=== PATIENT | female | born 1975 | race Caucasian/White ===

== ENCOUNTER → 2016-05-05 | Outpatient (CLI) | payer OTHER ==
[2016-05-05 13:09] LABS: CH 33.4; HCT 37.9 % (34.0-46.0); HGB 13.8 gm/dL (11.4-16.0); MCH 33.8 pg (25.0-35.0); MCHC 36.3 g/dL (31.0-37.0); MCV 93.1 fL (80.0-100.0); Mean Platelet Volume 8.2; RBC 4.08 m/uL (3.80-5.40); RDW 11.8 % (11.5-15.5); WBC 4.9 k/uL (3.8-10.6)
[2016-05-05 13:20] LABS: Partial Thromboplastin Time 23.8 sec (22.0-30.0); Prothrombin Time 10.6 sec (9.0-12.0)
[2016-05-05 13:31] LABS: ALT 56 U/L (9-52); AST 34 U/L (14-36); Alkaline Phosphatase 84 U/L (38-126); Anion Gap 10 mmol/L; Blood Urea Nitrogen 15 mg/dL (7-17); Calcium 9.4 mg/dL (8.4-10.2); Carbon Dioxide 23 mmol/L (22-30); Chloride 108 mmol/L (98-107); Cholesterol 131 mg/dL (<200); Glucose 92 mg/dL (74-99); HDL Cholesterol 59 mg/dL (40-60); Iron 109 ug/dL (37-170); Non-African American GFR(MDRD) >60 (>60 ml/min/1.73 sqM); Phosphorous 3.5 mg/dL (2.5-4.5); Potassium 4.1 mmol/L (3.5-5.1); Sodium 141 mmol/L (137-145); Total Bilirubin 0.6 mg/dL (0.2-1.3); Triglycerides 74 mg/dL (<150)
[2016-05-05 13:41] LABS: % Iron Saturation 29.8 % (20-50); Prealbumin 20 mg/dL (18-36); Total Iron Binding Capacity 366 ug/dL (265-497)
[2016-05-05 14:36] LABS: Vitamin B12 431 pg/mL (239-931)
[2016-05-05 16:23] LABS: Hemoglobin A1C 4.7 % (4.2-6.1)
[2016-05-11 20:54] LABS: Selenium 154 mcg/L (63-160)
== END | disposition home or self-care (01) ==
LOC: LABWHC1 12:23
PROVIDERS: ATTEND Surgery Plastic and Reconstructive Surgery
DX: N19 Unspecified kidney failure (principal); K74.1 Hepatic sclerosis; E55.9 Vitamin D deficiency, unspecified; K90.89 Other intestinal malabsorption; D50.8 Other iron deficiency anemias; E89.1 Postprocedural hypoinsulinemia; E21.1 Secondary hyperparathyroidism, not elsewhere classified; E66.01 Morbid (severe) obesity due to excess calories
CPT/HCPCS: 36415; 80053; 80061; 82306; 82525; 82607; 82728; 82746; 83036; 83540; 83550; 83735; 83970; 84100; 84134; 84255; 84425; 84443; 84590; 84630; 85027; 85610; 85730

== ENCOUNTER → 2016-05-12 | Outpatient (CLI) | payer OTHER ==
[2016-05-12 09:06] VITALS: BP 127/83; PULSE 50; RESP 15; TEMP 98.1; BMI 27.0
--- NOTE | 2016-06-15 00:57 | P.PN ---
Progress Note - Text DATE OF SERVICE: 05/12/2016 CHIEF COMPLAINT: Follow-up gastric bypass. HISTORY OF PRESENT ILLNESS: Maile Barboza is a 41-year-old female who is now one year out from Sin-en-Y gastric bypass on 05/18/2015. At her height of 5 feet 9-1/4 inches, her ideal body weight is 168 pounds. Her highest weight was 326 pounds. Today she comes in weighing 184 pounds. She has lost 142 pounds in a year. She has achieved 90% excess weight loss. Body mass index is reduced from 47.9 down to 27. Total BMI point reduction is 20.8. She is only 16 pounds overweight. She is very pleased with the level of success. No reports of obstructive sleep apnea and her hypertension is now completely resolved. Her osteoarthritis is completely resolved. There is moderate skin redundancy of the bilateral arms, thighs, legs and abdomen. She has redundant skin including panniculitis and has been treated for nystatin powder for well over a year. Now she presents for further evaluation and management. PAST MEDICAL HISTORY: 1. Morbid obesity. 2. Dyslipidemia. 3. Gastroesophageal reflux disease. 4. Obstructive sleep apnea. 5. Panniculitis. PAST SURGICAL HISTORY: 1. History of hernia ventral hernia. 2. History of breast surgery. 3. Status post Sin-en-Y gastric bypass. 4. Cholecystetomy. MEDICATIONS: Multivitamins. ALLERGIES: Denies. SOCIAL HISTORY: Daily smoker. FAMILY HISTORY: Pertinent for diabetes including morbid obesity. Denies any inflammatory bowel disease. REVIEW OF SYSTEMS: CONSTITUTIONAL: 6. At her height of 5 feet 9-1/4 inches, her ideal body weight is 168 pounds. Her highest weight was 326 pounds. Today she comes in weighing 184 pounds. She has lost 142 pounds in a year. She has achieved 90% excess weight loss. Body mass index is reduced from 47.9 down to 27. Total BMI point reduction is 20.8. She is only 16 pounds overweight. GASTROINTESTINAL: Also no reports of blood in stools. No dumping syndrome. MUSCULOSKELETAL: Moderate resolution of the bilateral hip and knee pain including lower back pain. RESPIRATORY: Resolved obstructive sleep apnea. 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 ENDOCRINE: Glucose intolerance, resolved. No reports of hypothyroidism. HEENT: Denies any vision or hearing loss. CARDIOVASCULAR: Denies any heart attack or chest pain. Does have dyslipidemia now improved. NEURO: Denies any seizure disorders. Denies any numbness. PSYCH: Denies any depression or suicidal ideation. HEMATOLOGIC: Denies any easy bruising or bleeding. PHYSICAL EXAM: VITAL SIGNS: 98.1, 50, 16, 127/83; 5 feet 9-1/4, 184 pounds. Body mass index 27.0 ABDOMEN: Pannus extends over pubis x 8 cm with hyperemia consistent with panniculitis. Weight of pannus over 10 pounds with skin elastosis. GENERAL: Well-developed, pleasant female in no acute distress. MUSCULOSKELETAL: No clubbing, cyanosis, or edema. HEENT: No sclerae icterus. Extraocular movements intact. Moist buccal mucosa. NECK: Supple without lymphadenopathy. CHEST: Nonlabored respirations were equal bilateral excursions. CARDIOVASCULAR: Regular rate and rhythm. NEURO: No focal or lateralizing signs. Cranial nerves II through XII grossly within normal limits. PSYCH: Appropriate affect. Alert and oriented to person place and time. ASSESSMENT: 1. Morbid obesity due to excess calories, now resolved. 2. Body mass index reduced from 47.9 down to 27. 3. History of diaphragmatic hiatal hernia. 4. Gastroesophageal reflux disease, resolved. 5. 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 6. Overweight. 7. Dyslipidemia, resolved. 8. Benign hypertension disease, resolved. 9. 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 10. Obstructive sleep apnea, resolved. 11. Metabolic syndrome, resolved. 12. Glucose intolerance, prediabetic, resolved. 13. Status post Sin-en-Y gastric bypass. 14. Elevated AST and ALT. 15. Family history of gallbladder disease. 16. Chronic cholecystitis. 17. Vitamin A deficiency. 18. Panniculitis. 19. Symptomatic cholelithiasis. 20. Bradycardia. 21. Seasonal ALLERGIES. 22. Inadequate protein intake. 23. Status post massive weight loss of 142 pounds. 24. Panniculitis. 25. Panniculus adiposis. PLAN: 1. She has done extremely well with her weight loss and despite taking nystatin powder she still continues to have moderate panniculitis. Additional photographic images have been obtained. 2. Recommend panniculectomy. On exam over 15 pounds of skin along the abdomen with hyperemia identified. I discussed with her the risk of panniculectomy including bleeding, infection, abdominal wall seroma, flap failure. 3. Additional complications including chronic pain were reviewed. 4. Inpatient hospitalization overnight advised for pain control. 5. As the procedure may make her anemic, recommend a bariatric metabolic panel. 6. DVT prophylaxis. 7. Antibiotic prophylaxis. ADDENDUM: LABS: Bariatric metabolic panel demonstrates chloride elevated at 108. ALT elevated at 56. Vitamin A low at 37. The rest of the trace elements were within normal limits. Recommend vitamin A rich foods including vitamin A supplement of 8000 daily. In regards to her postoperative care for panniculectomy, she will need at least 4 weeks of recovery of lifting no more than 4 pounds.
== END | disposition home or self-care (01) ==
LOC: BARWHC3 08:42
PROVIDERS: ATTEND Surgery Plastic and Reconstructive Surgery
DX: Z48.815 Encounter for surgical aftercare following surgery on the digestive system (principal); E66.3 Overweight; Z68.27 Body mass index [BMI] 27.0-27.9, adult; Z71.3 Dietary counseling and surveillance; Z98.84 Bariatric surgery status; F17.200 Nicotine dependence, unspecified, uncomplicated; R79.89 Other specified abnormal findings of blood chemistry; Z84.89 Family history of other specified conditions; K81.1 Chronic cholecystitis; E50.9 Vitamin A deficiency, unspecified; K80.80 Other cholelithiasis without obstruction; R00.1 Bradycardia, unspecified; Z91.09 Other allergy status, other than to drugs and biological substances; E63.8 Other specified nutritional deficiencies; M79.3 Panniculitis, unspecified; E65 Localized adiposity
CPT/HCPCS: 97803; G0463; 99211

== ENCOUNTER → 2016-08-17 | Outpatient (CLI) | payer OTHER ==
[2016-08-17 15:04] VITALS: BP 116/73; PULSE 58; RESP 16; TEMP 98.3; BMI 26.3
--- NOTE | 2016-09-06 19:07 | P.PN ---
Progress Note - Text DATE OF SERVICE: 08/17/2016 CHIEF COMPLAINT: Follow-up gastric bypass. HISTORY OF PRESENT ILLNESS: Maile Barboza is a 41-year-old female who is over one year out from Sin-en-Y gastric bypass on 05/18/2015. At her height of 5 feet 9-1/4 inches, her ideal body weight is 168 pounds. Her highest weight was 326 pounds. Today she comes in weighing 179 pounds. She has lost 147 pounds in over a year. She has lost another 5 pounds in 6 months. She has achieved 93% excess weight loss. Body mass index is reduced from 47.9 down to 26.3. Total BMI point reduction is 21.6. She is only 11 pounds overweight. She comes in with complaints of burning along the bilateral upper abdomen. She has undergone a cholecystectomy. She denies any back pain. She states the pain radiates to her left shoulder blade. She denies any trouble with swallowing. She denies any alleviating factors. Now she presents for evaluation regarding her bilateral upper abdominal pain as well as her pannus. She still reports chronic infections and ulcers as result of her pannus. She has been using nystatin powder for over a year as well. PAST MEDICAL HISTORY: 1. Morbid obesity. 2. Dyslipidemia. 3. Gastroesophageal reflux disease. 4. Obstructive sleep apnea. 5. Panniculitis. PAST SURGICAL HISTORY: 1. History of hernia ventral hernia. 2. History of breast surgery. 3. Status post Sin-en-Y gastric bypass. 4. Cholecystetomy. MEDICATIONS: Multivitamins. ALLERGIES: Denies. SOCIAL HISTORY: Denies active tobacco use. FAMILY HISTORY: Pertinent for diabetes including morbid obesity. Denies any inflammatory bowel disease. REVIEW OF SYSTEMS: CONSTITUTIONAL: At her height of 5 feet 9-1/4 inches, her ideal body weight is 168 pounds. Her highest weight was 326 pounds. Today she comes in weighing 179 pounds. She has lost 147 pounds in over a year. She has lost another 5 pounds in 6 months. She has achieved 93% excess weight loss. Body mass index is reduced from 47.9 down to 26.3. GASTROINTESTINAL: Also no reports of blood in stools. No dumping syndrome. MUSCULOSKELETAL: Moderate resolution of the bilateral hip and knee pain including lower back pain. RESPIRATORY: Resolved obstructive sleep apnea. No pneumonia. 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 ENDOCRINE: Glucose intolerance, resolved. No reports of hypothyroidism. HEENT: Denies any vision or hearing loss. CARDIOVASCULAR: Denies any heart attack or chest pain. Does have dyslipidemia now improved. NEURO: Denies any seizure disorders. Denies any numbness. PSYCH: Denies any depression or suicidal ideation. HEMATOLOGIC: Denies any easy bruising or bleeding. PHYSICAL EXAM: VITAL SIGNS: 5 feet 9-/4, 179 pounds. Body mass index 26.3 Vital Signs Temp 98.3 F 08/17/16 14:52 Pulse 58 L 08/17/16 14:52 Resp 16 08/17/16 14:52 BP 116/73 08/17/16 14:52 Pulse Ox ABDOMEN: Pannus extends over pubis x 9 cm with hyperemia consistent with panniculitis. Weight of pannus between 10 to 15 pounds with skin elastosis. Soft, nondistended. Minimal tenderness along bilateral upper abdomen. No peritoneal signs. GENERAL: Well-developed, pleasant female in no acute distress. MUSCULOSKELETAL: No clubbing, cyanosis, or edema. HEENT: No sclerae icterus. Extraocular movements intact. Moist buccal mucosa. NECK: Supple without lymphadenopathy. CHEST: Nonlabored respirations were equal bilateral excursions. CARDIOVASCULAR: Regular rate and rhythm. NEURO: No focal or lateralizing signs. Cranial nerves II through XII grossly within normal limits. PSYCH: Appropriate affect. Alert and oriented to person place and time. LABS: Vitamin A low at 37. ASSESSMENT: 1. Morbid obesity due to excess calories, now resolved. 2. Body mass index reduced from 47.9 down to 26.3 3. Status post Sin-en-Y gastric bypass. 4. Gastroesophageal reflux disease, resolved. 5. 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 6. Panniculitis. 7. Status post massive weight loss of 147 pounds. 8. Vitamin A deficiency. 9. Panniculus adiposis. 10. Bilateral upper abdominal pain. PLAN: 1. She reports increased pain of the bilateral upper abdomen whereby she is at risk for peritoneal adhesions. Recommend laparoscopic lysis of adhesions. 2. DVT prophylaxis. 3. Antibiotic prophylaxis. 4. Despite over one year treatment with statin powders, she continues to have persistent panniculitis. Recommend panniculectomy. 5. Risks of panniculectomy including bleeding, infection, flap failure, need for further surgery, postoperative seroma, chronic pain were described in detail. 6. Recommend correction of vitamin A deficiency such as vitamin A supplement 8000 units daily including vitamin A rich diet.
== END | disposition home or self-care (01) ==
LOC: BARWHC3 13:45
PROVIDERS: ATTEND Surgery Plastic and Reconstructive Surgery
DX: Z09 Encounter for follow-up examination after completed treatment for conditions other than malignant neoplasm (principal); M79.3 Panniculitis, unspecified; E50.9 Vitamin A deficiency, unspecified; Z98.84 Bariatric surgery status
CPT/HCPCS: 99211

== ENCOUNTER 2016-09-19 06:25 | Day surgery (SDC) | payer OTHER ==
[2016-09-13 12:58] VITALS: BMI 24.6
--- NOTE | 2016-09-19 05:16 | P.GSHP ---
History of Present Illness H&P Date: 09/19/16 DATE OF SERVICE: 09/19/2016 CHIEF COMPLAINT: Abdominal pain. HISTORY OF PRESENT ILLNESS: Maile Barboza is a 41-year-old female who is over one year out from Isn-en-Y gastric bypass on 05/18/2015. At her height of 5 feet 9- 1/4 inches, her ideal body weight is 168 pounds. Her highest weight was 326 pounds. Today she comes in weighing 168 pounds. She has lost 158 pounds in over a year. She has achieved 100% excess weight loss. Body mass index is reduced from 47.9 down to 24.6. She comes in with complaints of burning along the bilateral upper abdomen. She has undergone a cholecystectomy. She denies any back pain. She states the pain radiates to her left shoulder blade. She denies any trouble with swallowing. She denies any alleviating factors. Now she presents for evaluation regarding her bilateral upper abdominal pain. PAST MEDICAL HISTORY: 1. Morbid obesity. 2. Dyslipidemia. 3. Gastroesophageal reflux disease. 4. Obstructive sleep apnea. 5. Panniculitis. PAST SURGICAL HISTORY: 1. History of hernia ventral hernia. 2. History of breast surgery. 3. Status post Sin-en-Y gastric bypass. 4. Cholecystetomy. MEDICATIONS: Multivitamins. ALLERGIES: Denies. SOCIAL HISTORY: Denies active tobacco use. FAMILY HISTORY: Pertinent for diabetes including morbid obesity. Denies any inflammatory bowel disease. REVIEW OF SYSTEMS: CONSTITUTIONAL: At her height of 5 feet 9-1/4 inches, her ideal body weight is 168 pounds. Her highest weight was 326 pounds. Today she comes in weighing 168 pounds. She has lost 158 pounds in over a year. She has achieved 100% excess weight loss. Body mass index is reduced from 47.9 down to 24.6. GASTROINTESTINAL: Also no reports of blood in stools. No dumping syndrome. MUSCULOSKELETAL: Moderate resolution of the bilateral hip and knee pain including lower back pain. RESPIRATORY: Resolved obstructive sleep apnea. No pneumonia. 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 ENDOCRINE: Glucose intolerance, resolved. No reports of hypothyroidism. HEENT: Denies any vision or hearing loss. CARDIOVASCULAR: Denies any heart attack or chest pain. Does have dyslipidemia now improved. NEURO: Denies any seizure disorders. Denies any numbness. PSYCH: Denies any depression or suicidal ideation. HEMATOLOGIC: Denies any easy bruising or bleeding. PHYSICAL EXAM: VITAL SIGNS: 5 feet 9-1/4, 168 pounds. Body mass index 24.6 ABDOMEN: Pannus extends over pubis x 9 cm with hyperemia consistent with panniculitis. Weight of pannus between 10 to 15 pounds with skin elastosis. Soft, nondistended. Minimal tenderness along bilateral upper abdomen. No peritoneal signs. GENERAL: Well-developed, pleasant female in no acute distress. MUSCULOSKELETAL: No clubbing, cyanosis, or edema. HEENT: No sclerae icterus. Extraocular movements intact. Moist buccal mucosa. NECK: Supple without lymphadenopathy. CHEST: Nonlabored respirations were equal bilateral excursions. CARDIOVASCULAR: Regular rate and rhythm. NEURO: No focal or lateralizing signs. Cranial nerves II through XII grossly within normal limits. PSYCH: Appropriate affect. Alert and oriented to person place and time. ASSESSMENT: 1. Morbid obesity due to excess calories, now resolved. 2. Body mass index reduced from 47.9 down to 24.6 3. Status post Sin-en-Y gastric bypass. 4. Gastroesophageal reflux disease, resolved. 5. 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 6. Panniculitis. 7. Status post massive weight loss of 158 pounds. 8. Vitamin A deficiency. 9. Panniculus adiposis. 10. Bilateral upper abdominal pain. PLAN: 1. She reports increased pain of the bilateral upper abdomen whereby she is at risk for peritoneal adhesions. Recommend laparoscopic lysis of adhesions. 2. DVT prophylaxis. 3. Antibiotic prophylaxis. 4. Despite over one year treatment with statin powders, she continues to have persistent panniculitis. Recommend panniculectomy. 5. Risks of panniculectomy including bleeding, infection, flap failure, need for further surgery, postoperative seroma, chronic pain were described in detail. 6. Recommend correction of vitamin A deficiency such as vitamin A supplement 8000 units daily including vitamin A rich diet. Past Medical History Past Medical History: GERD/Reflux, Hyperlipidemia, Sleep Apnea/CPAP/BIPAP Additional Past Medical History / Comment(s): NO TX FOR SLEEP Apnea, GERD, HYPERLIPIDEMIA RESOLVED SINCE BARIATRIC SURGERY. HAS HAD EPISODES OF UPPER ABD PAIN, NONE RECENT. History of Any Multi-Drug Resistant Organisms: None Reported Past Surgical History: Bariatric Surgery, Breast Surgery, Cholecystectomy, Hernia Repair Additional Past Surgical History / Comment(s): Hiatal Hernia Repair. SIN-N-Y Gastric Bypass 05/2015. FELICITY Breast Lumpectomy. Past Anesthesia/Blood Transfusion Reactions: No Reported Reaction, Motion Sickness Smoking Status: Never smoker - Past Family History Mother Family Medical History: No Reported History Additional Family Medical History / Comment(s): Mother is healthy Father Family Medical History: No Reported History Additional Family Medical History / Comment(s): Father is healthy. Medications and Allergies Home Medications Medication Instructions Recorded Confirmed Type Multivitamins, Thera [Multivitamin] 2 tab PO DAILY 06/25/15 09/13/16 History Calcium Citrate 1 tab PO DAILY 02/22/16 09/13/16 History Nystatin 100,000 Unit/gm Powd 1 applic TOPICAL TID PRN 05/12/16 09/13/16 History [Mycostatin Powder] Vitamin A 5,000 unit PO DAILY 08/17/16 09/13/16 History Allergies Allergy/AdvReac Type Severity Reaction Status Date / Time No Known Allergies Allergy Verified 09/13/16 11:56
[~2016-09-19 06:25] MED LIST: ACETAMINOPHEN TAB 500 MG TAB PO ONE; DEXAMETHASONE SOD PHOSPHATE 10 MG/ML 1 ML VIAL IV ONE; HEPARIN SODIUM,PORCINE 5,000 UNIT/ML 1 ML VIAL SQ ONE; HYDROmorphone 1 MG/ML 1 ML SYRINGE IVP PRN; LACTATED RINGERS 1,000 ML IV SCH; LIDOCAINE 1% 20 ML VIAL (10MG/ML) FOR IV START INTRADERMA PRN; ONDANSETRON 4 MG/2 ML VIAL IVP ONE; Pre Op ABX Message 1 EACH MISC MISCELLANE ONE; SCOPOLAMINE 1.5MG/72HR PATCH TRANSDERM ONE; ceFAZolin 2 GM in SODIUM CHLORIDE 0.9% 100 ML IVPB ONE
[2016-09-19] MEDS ORDERED: BUPIVACAIN-EPI 0.5%-1:200,000 30 ML VIAL SQ ONE (07:27)
[2016-09-19] MEDS ORDERED: fentaNYL (PF) 50 MCG/ML 2 ML AMP ONE (07:30)
[2016-09-19] MEDS ORDERED: ROCURONIUM BROMIDE 10 MG/ML 10 ML VIAL IV ONE (07:30)
[2016-09-19] MEDS ORDERED: MIDAZOLAM 2 MG/2 ML VIAL ONE (07:30)
[2016-09-19] MEDS ORDERED: PROPOFOL 10 MG/ML 20 ML VIAL IV ONE (07:30)
[2016-09-19] MEDS ORDERED: ATROPINE SULFATE 0.4 MG/ML 1 ML VIAL ONE (07:30)
[2016-09-19] MEDS ORDERED: GLYCOPYRROLATE 0.2 MG/ML 2 ML VIAL ONE (07:30)
[2016-09-19] MEDS ORDERED: NEOSTIGMINE 1 MG/ML 10 ML VIAL ONE (07:30)
[2016-09-19] MEDS ORDERED: LACTATED RINGERS 1,000 ML IV ONE (08:13)
--- NOTE | 2016-09-19 08:41 | P.OP ---
Date of Procedure: 09/19/16 Preoperative Diagnosis: Postoperative Diagnosis: Procedure(s) Performed: Implants: Indications for Procedure: Operative Findings: Description of Procedure: SURGEON: THIAGO MEYERS MD [employer]IV[employer] CHECKER: ALEX SPICER PREOPERATIVE DIAGNOSES: 1. Prior history of Sin-En-Y gastric bypass. 2. Chronic abdominal pain. 3. Status post massive weight loss, 160 lbs. POSTOPERATIVE DIAGNOSES: 1. Prior history of Sin-En-Y gastric bypass. 2. Chronic abdominal pain. 3. Status post massive weight loss, 160 lbs. 4. Mesenteric adhesion at jejunojejunostomy. 5. Internal hernia mesenteric at jejunojejunostomy. 6. Hemoperitoneum from menses. OPERATION: 1. Diagnostic laparoscopy. 2. Laparoscopic lysis of adhesion. 3. Closure of mesenteric internal hernia, jejunojejunostomy. ANESTHESIA: General with 30 mL 0.50% Marcaine with epinephrine. ESTIMATED BLOOD LOSS: 2 mL. SPECIMENS REMOVED: None. COMPLICATIONS: None. INDICATIONS: The patient is a 41-year-old female with past history of Sin-en-Y gastric bypass. She reports recurrent abdominal pain including of the bilateral upper quadrant and epigastrium. With her history of gastric bypass, she is at risk for internal hernia including intussusception and peritoneal adhesions. Surgical intervention with diagnostic laparoscopy and possible lysis adhesions were described at length. Benefits and risks were reviewed. Informed consent was obtained. DESCRIPTION OF PROCEDURE: Patient was brought to the operating room and laid on split leg table. After general induction, the abdomen had been prepped and draped in standard sterile fashion. Prior to incision, a timeout protocol was confirmed with surgical team regarding the patient's name including procedures to be performed. A left upper quadrant transverse incision was made after anesthetizing the skin with 0.5% Marcaine with epinephrine. Laparoscopic trocar entry with 5- mm trocar into the abdomen was performed without any injury to bowel, viscera or mesentery. Diagnostic laparoscopy demonstrated no small bowel dilatation. Hemoperitoneum was found along the pelvis consistent patient's menstrual cycle. No abdominal wall adhesions were found. Laparoscopic imaging were obtained. Next, two 5 mm trocars were placed one along the left lateral abdominal wall and the other just below the umbilicus under direct visualization. Small bowel was then inspected from the terminal ileum to the jejunojejunostomy and proximally from the Sin limb to the jejunojejunostomy. A defect along the mesentery and inter-mesenteric adhesion was encountered with findings of internal hernia was sharply excised using a Harmonic scalpel at the jejunojejunostomy. The Cagle defect was scarred. Secondary to the patient moderate weight loss, her jejunojejunostomy mesenteric defect had reopened. Next, attention was brought to the small bowel, particularly of the base of the cecum to perform a retrograde analysis of the small bowel. Excellent peristalsis was identified without any evidence of bowel obstruction or bowel dilatation. The rest of the transverse colon was found to be also unremarkable. Attention was brought to the liver for which no evidence of fatty liver disease was encountered. Hemostasis was checked. At the jejunojejunostomy mesenteric defect, the defect was closed using an Endo Stitch and 2-0 silk. All instruments were removed. All fascial defects were found to be less than 8 mm in size. For postop analgesia 0.25% Marcaine and epinephrine was infiltrated to all wounds. The incisions were reapproximated using interrupted subcuticular 4-0 Monocryl. Dermabond was applied to the skin. At the end of the procedure, needle, sponge, and instrument counts had been verified correct by rn surgical. Laparoscopic imaging with final capture had been reviewed and also discussed with the patient's family. FINDINGS: 1. Reopening of the jejunojejunostomy mesenteric defect after moderate weight loss. 2. Hemoperitoneum along the pelvis from recent menstrual cycle. 3. Internal hernia and these enteric defect closed using Endo Stitch and 2-0 silk. Plan - Discharge Summary New Discharge Prescriptions: No Action Multivitamins, Thera [Multivitamin] 2 tab PO DAILY Calcium Citrate 1 tab PO DAILY Nystatin 100,000 Unit/gm Powd [Mycostatin Powder] 1 applic TOPICAL TID PRN PRN Reason: Skin Irritation Vitamin A 5,000 unit PO DAILY Discharge Medication List Multivitamins, Thera [Multivitamin] 2 tab PO DAILY 06/25/15 [History] Calcium Citrate 1 tab PO DAILY 02/22/16 [History] Nystatin 100,000 Unit/gm Powd [Mycostatin Powder] 1 applic TOPICAL TID PRN 05/12 [History] Vitamin A 5,000 unit PO DAILY 08/17/16 [History]
[2016-09-19] MEDS ORDERED: HYDROcodone/APAP 5-325MG 1 EACH TAB PO PRN (08:43)
[2016-09-19] MEDS ORDERED: ONDANSETRON 4 MG/2 ML VIAL IVP PRN (08:43)
[2016-09-19] MEDS ORDERED: NALOXONE 0.4 MG/ML 1 ML VIAL IV PRN (08:43)
[2016-09-19 08:48] VITALS: TEMP 98
[2016-09-19 08:52] VITALS: RESP 16
[2016-09-19] MEDS ORDERED: KETOROLAC 30 MG/ML 1 ML VIAL IVP ONE (09:11)
[2016-09-19] MEDS ORDERED: HYDROcodone/APAP 5-325MG 1 EACH TAB PO ONE (09:45)
[2016-09-19 10:20] VITALS: BP 132/82; PULSE 65
[2016-09-19] MEDS ORDERED: KETOROLAC 30 MG/ML 1 ML VIAL IVP SCH (12:00)
== END 2016-09-19 10:27 | disposition home or self-care (01) ==
LOC: OR 06:25
PROVIDERS: ATTEND Surgery Plastic and Reconstructive Surgery
DX: K94.19 Other complications of enterostomy (principal); K46.9 Unspecified abdominal hernia without obstruction or gangrene; K66.0 Peritoneal adhesions (postprocedural) (postinfection); K66.1 Hemoperitoneum; G89.29 Other chronic pain; Z98.84 Bariatric surgery status; Z68.24 Body mass index [BMI] 24.0-24.9, adult; M79.3 Panniculitis, unspecified; E50.9 Vitamin A deficiency, unspecified; G47.33 Obstructive sleep apnea (adult) (pediatric); Z99.89 Dependence on other enabling machines and devices; Z79.899 Other long term (current) drug therapy
CPT/HCPCS: 81025; 49329; J2250; J0461; J1644; J1100; J2710; J0690; J2405; J3010; J1885; J2704

== ENCOUNTER → 2016-09-22 | Outpatient (CLI) | payer OTHER ==
[2016-09-22 10:40] VITALS: BP 123/83; PULSE 42; RESP 42; TEMP 98.1; BMI 26.1
--- NOTE | 2016-10-16 11:50 | P.PN ---
Progress Note - Text DATE OF SERVICE: 09/22/2016 CHIEF COMPLAINT: Follow-up gastric bypass. HISTORY OF PRESENT ILLNESS: Maile Barobza is a 41-year-old female who is status post Sin-en-Y gastric bypass on 05/18/2015. She had chronic left upper quadrant abdominal pain. She is status post diagnostic laparoscopy with lysis of adhesions including closure of internal hernia on 09/19/2016. She feels much better. Separately she has done extremely well with weight loss. No reports of fevers or chills. At her height of 5 feet 9-1/4 inches, her ideal body weight is 168 pounds. Her highest weight was 326 pounds. Today she comes in weighing 178 pounds. She has lost 148 pounds in over a year. She has achieved 94% excess weight loss. Body mass index is reduced from 47.9 down to 26.1. Total BMI point reduction is 21.8. She is only 10 pounds overweight. PHYSICAL EXAM: VITAL SIGNS: 5 feet 9-1/4, 178 pounds. Body mass index 26.1 Vital Signs 09/22/16 10:36 Temperature 98.1 F Pulse Rate 42 L Respiratory 42 H Rate Blood Pressure 123/83 ABDOMEN: Pannus extends over pubis x 9 cm with hyperemia consistent with panniculitis. All incisions clean dry and intact. No peritonitis. GENERAL: Well-developed, pleasant female in no acute distress. MUSCULOSKELETAL: No clubbing, cyanosis, or edema. HEENT: No sclerae icterus. Extraocular movements intact. Moist buccal mucosa. NECK: Supple without lymphadenopathy. CHEST: Nonlabored respirations were equal bilateral excursions. CARDIOVASCULAR: Regular rate and rhythm. NEURO: No focal or lateralizing signs. Cranial nerves II through XII grossly within normal limits. PSYCH: Appropriate affect. Alert and oriented to person place and time. ASSESSMENT: 1. Morbid obesity due to excess calories, now resolved. 2. Body mass index reduced from 47.9 down to 26.1 3. Status post Sin-en-Y gastric bypass. 4. Panniculitis. 5. Status post massive weight loss of 148 pounds. 6. Panniculus adiposis. 7. History of left upper quadrant abdominal pain resolved. PLAN: 1. Her pain has resolved however she does have history of panniculitis. 2. Recommend panniculectomy once her weight has stabilized.
== END ==
LOC: BARWHC3 10:29
PROVIDERS: ATTEND Surgery Plastic and Reconstructive Surgery
DX: Z48.815 Encounter for surgical aftercare following surgery on the digestive system (principal); M79.3 Panniculitis, unspecified; Z68.26 Body mass index [BMI] 26.0-26.9, adult; Z98.890 Other specified postprocedural states; Z98.84 Bariatric surgery status
CPT/HCPCS: 99211

== ENCOUNTER → 2017-01-11 | Outpatient (CLI) | payer OTHER ==
[2017-01-11 16:12] VITALS: BP 116/75; PULSE 57; RESP 16; TEMP 97.6; BMI 26.4
--- NOTE | 2017-03-06 20:20 | P.PN ---
Subjective Progress Note Date: 01/11/17 DATE OF SERVICE: 01/11/2017 CHIEF COMPLAINT: Follow-up gastric bypass. HISTORY OF PRESENT ILLNESS: Maile Barboza is a 41-year-old female who is over one year out from Sin-en-Y gastric bypass on 05/18/2015. At her height of 5 feet 9-1/4 inches, her ideal body weight is 168 pounds. Her highest weight was 326 pounds. Today she comes in weighing 180 pounds. She has lost 146 pounds in over a year. She has achieved 92% excess weight loss. Body mass index is reduced from 47.9 down to 26.5. Total BMI point reduction is 21.4. She is 12 pounds overweight. She has epigastric abdominal pain. This has improved with omeprazole. Her main concern includes troubles with her abdominal skin. She has been using Nystatin powder for over one year. PAST MEDICAL HISTORY: 1. Morbid obesity. 2. Dyslipidemia. 3. Gastroesophageal reflux disease. 4. Obstructive sleep apnea. 5. Panniculitis. PAST SURGICAL HISTORY: 1. History of hernia ventral hernia. 2. History of breast surgery. 3. Status post Sin-en-Y gastric bypass. 4. Cholecystetomy. 5. Lysis of adhesions. MEDICATIONS: 1. Multivitamins. 2. Omeprazole. ALLERGIES: Denies. SOCIAL HISTORY: Denies active tobacco use. FAMILY HISTORY: Pertinent for diabetes including morbid obesity. Denies any inflammatory bowel disease. REVIEW OF SYSTEMS: CONSTITUTIONAL: At her height of 5 feet 9-1/4 inches, her ideal body weight is 168 pounds. Her highest weight was 326 pounds. Today she comes in weighing 180 pounds. She has lost 146 pounds in over a year. She has achieved 92% excess weight loss. Body mass index is reduced from 47.9 down to 26.5. GASTROINTESTINAL: Also no reports of blood in stools. No dumping syndrome. Takes omeprazole for epigastric abdominal pain. MUSCULOSKELETAL: Moderate resolution of the bilateral hip and knee pain including lower back pain. RESPIRATORY: Resolved obstructive sleep apnea. No pneumonia. 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 ENDOCRINE: Glucose intolerance, resolved. No reports of hypothyroidism. HEENT: Denies any vision or hearing loss. CARDIOVASCULAR: Denies any heart attack or chest pain. Does have dyslipidemia now improved. NEURO: Denies any seizure disorders. Denies any numbness. PSYCH: Denies any depression or suicidal ideation. HEMATOLOGIC: Denies any easy bruising or bleeding. PHYSICAL EXAM: VITAL SIGNS: 5 feet 9-1/4, 180 pounds. Body mass index 26.5 Vital Signs Temp 97.6 F 01/11/17 16:10 Pulse 57 L 01/11/17 16:10 Resp 16 01/11/17 16:10 BP 116/75 01/11/17 16:10 Pulse Ox ABDOMEN: Pannus extends over pubis x 10 cm with hyperemia consistent with panniculitis. Weight of pannus between 10 to 15 pounds with skin elastosis. Soft, nondistended. Minimal tenderness along bilateral upper abdomen. No peritoneal signs. GENERAL: Well-developed, pleasant female in no acute distress. MUSCULOSKELETAL: No clubbing, cyanosis, or edema. HEENT: No sclerae icterus. Extraocular movements intact. Moist buccal mucosa. NECK: Supple without lymphadenopathy. CHEST: Nonlabored respirations were equal bilateral excursions. CARDIOVASCULAR: Regular rate and rhythm. NEURO: No focal or lateralizing signs. Cranial nerves II through XII grossly within normal limits. PSYCH: Appropriate affect. Alert and oriented to person place and time. ASSESSMENT: 1. Morbid obesity due to excess calories, now resolved. 2. Body mass index reduced from 47.9 down to 26.5 3. Status post Sin-en-Y gastric bypass. 4. Gastroesophageal reflux disease. 5. 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 6. Panniculitis. 7. Status post massive weight loss of 146 pounds. 8. Panniculus adiposis. PLAN: 1. She has epigastric abdominal pain likely secondary to residual gastric acid. Recommend omeprazole. Alternatives include apple cidar vinegar and lemon juice. 2. She has panniculitis. Recommend panniculectomy as she has treatment over 1- 2 years with minimal improvement. 3. Inpatient hospitalization overnight for pain control. 4. Risks of flap failure, pain, seromas, need for revision were reviewed. Objective - Vital Signs Vital signs: Vital Signs Temp 97.6 F 01/11/17 16:10 Pulse 57 L 01/11/17 16:10 Resp 16 01/11/17 16:10 BP 116/75 01/11/17 16:10 Pulse Ox Intake & Output 01/10/17 01/11/17 01/11/17 18:59 06:59 18:59 Weight 81.845 kg
== END | disposition home or self-care (01) ==
LOC: BARWHC3 14:37
PROVIDERS: ATTEND Surgery Plastic and Reconstructive Surgery
DX: Z09 Encounter for follow-up examination after completed treatment for conditions other than malignant neoplasm (principal); K21.9 Gastro-esophageal reflux disease without esophagitis; M17.0 Bilateral primary osteoarthritis of knee; M79.3 Panniculitis, unspecified; E65 Localized adiposity; Z79.899 Other long term (current) drug therapy; Z90.49 Acquired absence of other specified parts of digestive tract; Z98.890 Other specified postprocedural states; Z98.86 Personal history of breast implant removal; Z98.84 Bariatric surgery status
CPT/HCPCS: 99211

== ENCOUNTER → 2017-02-24 | Outpatient (CLI) | payer OTHER ==
--- NOTE | 2017-03-02 14:25 | MM ---
Reason for exam: screening (asymptomatic). Last mammogram was performed 2 years and 5 months ago. History: Benign excisional biopsy of both breasts, 1988. Took hormonal contraceptives for 8 years. Physical Findings: A clinical breast exam by your physician is recommended on an annual basis and results should be correlated with mammographic findings. MG Screening Mammo w CAD Bilateral CC and MLO view(s) were taken. Prior study comparison: September 17, 2014, bilateral MG screening mammo w CAD. May 06, 2011, bilateral digital screening mammo w/CAD. The breast tissue is heterogeneously dense. This may lower the sensitivity of mammography. No significant changes when compared with prior studies. ASSESSMENT: Benign, BI-RAD 2 RECOMMENDATION: Routine screening mammogram of both breasts in 1 year.
== END | disposition home or self-care (01) ==
LOC: RADMAMWWP 11:40
PROVIDERS: ATTEND Family Medicine
DX: Z12.31 Encounter for screening mammogram for malignant neoplasm of breast (principal)

== ENCOUNTER → 2017-05-17 | Outpatient (CLI) | payer OTHER ==
[2017-05-17 15:16] VITALS: BP 131/86; PULSE 54; RESP 16; TEMP 99; BMI 26.1
[2017-05-17 16:58] LABS: HCT 37.5 % (34.0-46.0); HGB 12.2 gm/dL (11.4-16.0); MCHC 32.6 g/dL (31.0-37.0); MCV 85.9 fL (80.0-100.0); Mean Platelet Volume 7.2; Platelet Count 306 k/uL (150-450); RBC 4.36 m/uL (3.80-5.40); RDW 12.2 % (11.5-15.5); WBC 4.8 k/uL (3.8-10.6)
[2017-05-17 17:02] LABS: Prothrombin Time 9.8 sec (9.0-12.0)
[2017-05-17 17:12] LABS: ALT 64 U/L (9-52); AST 45 U/L (14-36); Albumin 4.6 g/dL (3.5-5.0); Alkaline Phosphatase 107 U/L (38-126); Anion Gap 8 mmol/L; Blood Urea Nitrogen 15 mg/dL (7-17); Carbon Dioxide 28 mmol/L (22-30); Chloride 104 mmol/L (98-107); Cholesterol 191 mg/dL (<200); Glucose 91 mg/dL (74-99); HDL Cholesterol 74 mg/dL (40-60); LDL Cholesterol,Calculated 96 mg/dL (0-99); Magnesium 1.9 mg/dL (1.6-2.3); Phosphorus 3.9 mg/dL (2.5-4.5); Potassium 4.1 mmol/L (3.5-5.1); Sodium 140 mmol/L (137-145); Total Bilirubin 0.4 mg/dL (0.2-1.3); Total Protein 7.5 g/dL (6.3-8.2); Triglycerides 106 mg/dL (<150)
[2017-05-18 01:22] LABS: Vitamin D 25 Hydroxy 37.7 ng/mL (30.0-100.0)
[2017-05-18 02:14] LABS: Hemoglobin A1C 5.3 % (4.0-6.0)
[2017-05-18 02:15] LABS: Folate, Serum >24.0 ng/mL; Iron Saturation 4.16 (12.00-45.00)
[2017-05-18 02:28] LABS: Parathyroid Hormone Intact 63.9 pg/mL (14.0-72.0)
[2017-05-18 16:21] LABS: Zinc, Serum 69 ug/dL (60-130)
[2017-05-19 00:55] LABS: Vitamin B1 77 ug/L (38-122)
[2017-05-19 08:41] LABS: Vitamin A 42 ug/dL (38-106)
[2017-05-20 23:20] LABS: Selenium 136 mcg/L (63-160)
--- NOTE | 2017-06-30 09:56 | P.PN ---
Subjective Progress Note Date: 05/17/17 DATE OF SERVICE: 05/17/2017 CHIEF COMPLAINT: Follow-up gastric bypass HISTORY OF PRESENT ILLNESS: Maile Barboza is a 42-year-old female status post Sin -en-Y gastric bypass on 05/18/2015. She is 2 years out. At her height of 5 feet 9-1/4 inches, her ideal body weight is 168 pounds. Her highest weight was 326 pounds. Today she comes in weighing 178 pounds. She has lost 148 pounds, lifetime. She has lost another 2 pounds in 4 months. She has achieved 94% excess weight loss. Body mass index is reduced from 47.9 down to 26.1. She is 10 pounds overweight. She comes in with complaints of severe and chronic panniculitis. Also she reports epigastric abdominal pain also at the right lower quadrant. She has been using nystatin powder including topical treatment for over 2 years. She reports that her pannus interferes with her daily activities clues with exercising, pacing, closing, lower back pain and causing increased chafing to her legs. Now she presents for panniculectomy. PAST MEDICAL HISTORY: 1. Morbid obesity. 2. Dyslipidemia. 3. Gastroesophageal reflux disease. 4. Obstructive sleep apnea. 5. Panniculitis. PAST SURGICAL HISTORY: 1. History of hernia ventral hernia. 2. History of breast surgery. 3. Status post Sin-en-Y gastric bypass. 4. Cholecystetomy. 5. Lysis of adhesions. MEDICATIONS: 1. Multivitamins. 2. Omeprazole. 3. Nystatin powder 4. Vitamin A 5. Calcium ALLERGIES: Denies. SOCIAL HISTORY: Denies active tobacco use. FAMILY HISTORY: Pertinent for diabetes including morbid obesity. Denies any inflammatory bowel disease. REVIEW OF SYSTEMS: CONSTITUTIONAL: At her height of 5 feet 9-1/4 inches, her ideal body weight is 168 pounds. Her highest weight was 326 pounds. Today she comes in weighing 178 pounds. She has lost 148 pounds, lifetime. She has lost another 2 pounds in 4 months. She has achieved 94% excess weight loss. Body mass index is reduced from 47.9 down to 26.1. She is 10 pounds overweight. GASTROINTESTINAL: No dumping syndrome. No change in bowel habits. MUSCULOSKELETAL: Moderate resolution of the bilateral hip and knee pain including lower back pain. RESPIRATORY: Resolved obstructive sleep apnea. No pneumonia. 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 ENDOCRINE: Glucose intolerance, resolved. No reports of hypothyroidism. HEENT: Denies any vision or hearing loss. CARDIOVASCULAR: Denies any heart attack or chest pain. NEURO: Denies any seizure disorders. Denies any numbness. PSYCH: Denies any depression or suicidal ideation. HEMATOLOGIC: Denies any easy bruising or bleeding. PHYSICAL EXAM: VITAL SIGNS: 5 feet 9-/4, 178 pounds. Body mass index 26.1 Vital Signs Temp 99.0 F 05/17/17 15:11 Pulse 54 L 05/17/17 15:11 Resp 16 05/17/17 15:11 BP 131/86 05/17/17 15:11 Pulse Ox ABDOMEN: Pannus extends over pubis more than 5 inches. Weight of pannus over 10 pounds with severe elastosis. Soft, nondistended. GENERAL: Well-developed, pleasant female in no acute distress. MUSCULOSKELETAL: No clubbing, cyanosis, or edema. HEENT: No sclerae icterus. Extraocular movements intact. Moist buccal mucosa. NECK: Supple without lymphadenopathy. CHEST: Nonlabored respirations were equal bilateral excursions. CARDIOVASCULAR: Regular rate and rhythm. NEURO: No focal or lateralizing signs. Cranial nerves II through XII grossly within normal limits. PSYCH: Appropriate affect. Alert and oriented to person place and time. SKIN: Well perfused. Good skin turgor. ASSESSMENT: 1. Morbid obesity due to excess calories, now resolved. 2. Body mass index reduced from 47.9 down to 26.1 3. Status post Sin-en-Y gastric bypass. 4. Panniculitis 5. Status post massive weight loss of 148 pounds. 6. Panniculus adiposis. PLAN: 1. Recommend bariatric metabolic panel she is now 2 years out. 2. She has persistent debilitating panniculitis. To restore function, recommend panniculectomy. Benefits and risks of bleeding, infection, flap failure, need for further surgery, placement of drains were described. 3. Recommend correction of the tractional deficiencies prior to procedure. 4. Recommend two-week protein diet prior to procedure for optimal wound recovery. 5. DVT prophylaxis 6. Antibiotic prophylaxis Laboratory Last Values WBC 4.8 k/uL (3.8-10.6) 05/17/17 16:24 RBC 4.36 m/uL (3.80-5.40) 05/17/17 16:24 Hgb 12.2 gm/dL (11.4-16.0) 05/17/17 16:24 Hct 37.5 % (34.0-46.0) 05/17/17 16:24 MCV 85.9 fL (80.0-100.0) 05/17/17 16:24 MCH 28.0 pg (25.0-35.0) 05/17/17 16:24 MCHC 32.6 g/dL (31.0-37.0) 05/17/17 16:24 RDW 12.2 % (11.5-15.5) 05/17/17 16:24 Plt Count 306 k/uL (150-450) 05/17/17 16:24 PT 9.8 sec (9.0-12.0) 05/17/17 16:24 INR 1.0 (<1.2) 05/17/17 16:24 APTT 22.0 sec (22.0-30.0) 05/17/17 16:24 Sodium 140 mmol/L (137-145) 05/17/17 16:24 Potassium 4.1 mmol/L (3.5-5.1) 05/17/17 16:24 Chloride 104 mmol/L (98-107) 05/17/17 16:24 Carbon Dioxide 28 mmol/L (22-30) 05/17/17 16:24 Anion Gap 8 mmol/L 05/17/17 16:24 BUN 15 mg/dL (7-17) 05/17/17 16:24 Creatinine 0.80 mg/dL (0.52-1.04) 05/17/17 16:24 Est GFR (CKD-EPI)AfAm >90 (>60 ml/min/1.73 sqM) 05/17/17 16:24 Est GFR (CKD-EPI)NonAf >90 (>60 ml/min/1.73 sqM) 05/17/17 16:24 Glucose 91 mg/dL (74-99) 05/17/17 16:[address] Glu mg/dL 105 05/17/17 16:24 Hemoglobin A1c 5.3 % (4.0-6.0) 05/17/17 16:24 Calcium 10.0 mg/dL (8.4-10.2) 05/17/17 16:24 Phosphorus 3.9 mg/dL (2.5-4.5) 05/17/17 16:24 Magnesium 1.9 mg/dL (1.6-2.3) 05/17/17 16:24 Iron 19 ug/dL (50-170) L 05/17/17 16:24 TIBC 457 ug/dL (228-460) 05/17/17 16:24 Iron Saturation 4.16 (12.00-45.00) L 05/17/17 16:24 Ferritin 2.9 ng/mL (10.0-291.0) L 05/17/17 16:24 Total Bilirubin 0.4 mg/dL (0.2-1.3) 05/17/17 16:24 AST 45 U/L (14-36) H 05/17/17 16:24 ALT 64 U/L (9-52) H 05/17/17 16:24 Alkaline Phosphatase 107 U/L (38-126) 05/17/17 16:24 Total Protein 7.5 g/dL (6.3-8.2) 05/17/17 16:24 Albumin 4.6 g/dL (3.5-5.0) 05/17/17 16:24 Prealbumin 22.0 mg/dL (18.0-42.0) 05/17/17 16:24 Triglycerides 106 mg/dL (<150) 05/17/17 16:24 Cholesterol 191 mg/dL (<200) 05/17/17 16:24 LDL Cholesterol, Calc 96 mg/dL (0-99) 05/17/17 16:24 HDL Cholesterol 74 mg/dL (40-60) H 05/17/17 16:24 Vitamin A 42 ug/dL (38-106) 05/17/17 16:24 Vitamin B1 77 ug/L (38-122) 05/17/17 16:24 Vitamin B12 359.0 pg/mL (200.0-944.0) 05/17/17 16:24 Vitamin D 25-Hydroxy 37.7 ng/mL (30.0-100.0) 05/17/17 16:24 Folate >24.0 ng/mL 05/17/17 16:24 TSH 2.990 mIU/L (0.465-4.680) 05/17/17 16:24 PTH Intact 63.9 pg/mL (14.0-72.0) 05/17/17 16:24 Copper 1364 ug/L (810-1990) 05/17/17 16:24 Selenium 136 mcg/L (63-160) 05/17/17 16:24 Zinc 69 ug/dL (60-130) 05/17/17 16:24 Iron is low Ferritin is low HDL elevated Wit severity of symptomatic iron deficiency, recommend iron infusion. Objective - Vital Signs Vital signs: Vital Signs Temp 99.0 F 05/17/17 15:11 Pulse 54 L 05/17/17 15:11 Resp 16 05/17/17 15:11 BP 131/86 05/17/17 15:11 Pulse Ox Intake & Output 05/16/17 05/17/17 05/17/17 18:59 06:59 18:59 Weight 80.796 kg - Labs CBC & Chem 7: 05/17/17 16:24 05/17/17 16:24
== END | disposition home or self-care (01) ==
LOC: BARWHC3 14:33
PROVIDERS: ATTEND Surgery Plastic and Reconstructive Surgery
DX: Z48.815 Encounter for surgical aftercare following surgery on the digestive system (principal); G47.33 Obstructive sleep apnea (adult) (pediatric); M79.3 Panniculitis, unspecified; R10.13 Epigastric pain; R10.31 Right lower quadrant pain; R63.4 Abnormal weight loss; E66.8 Other obesity; K21.9 Gastro-esophageal reflux disease without esophagitis; E78.5 Hyperlipidemia, unspecified; E21.1 Secondary hyperparathyroidism, not elsewhere classified; E89.1 Postprocedural hypoinsulinemia; D50.9 Iron deficiency anemia, unspecified; K90.9 Intestinal malabsorption, unspecified; E55.9 Vitamin D deficiency, unspecified; K74.1 Hepatic sclerosis; N19 Unspecified kidney failure; K50.90 Crohn's disease, unspecified, without complications; Z79.899 Other long term (current) drug therapy; Z98.84 Bariatric surgery status; Z68.26 Body mass index [BMI] 26.0-26.9, adult; Z90.49 Acquired absence of other specified parts of digestive tract
CPT/HCPCS: 84255; 84134; 84425; 80061; 80053; 82607; 82728; 82525; 82746; 83540; 83550; 83735; 84100; 84443; 84590; 84630; 85027; 85610; 85730; 82306; 83970; 83036; 36415; G0463; 99211

== ENCOUNTER → 2017-07-05 | Outpatient (CLI) | payer OTHER ==
[2017-07-05 14:21] VITALS: BP 121/84; PULSE 58; RESP 16; TEMP 98.6; BMI 25.9
--- NOTE | 2017-07-05 14:45 | P.GSHP ---
History of Present Illness H&P Date: 07/05/17 DATE OF SERVICE: 07/05/2017 CHIEF COMPLAINT: Follow-up gastric bypass HISTORY OF PRESENT ILLNESS: Maile Barboza is a 42-year-old female status post Sin -en-Y gastric bypass on 05/18/2015. She is 2 years out. Her last visit was 05/17. At her height of 5 feet 9-1/4 inches, her ideal body weight is 168 pounds. Her highest weight was 326 pounds. Today she comes in weighing 177 pounds. She has lost 149 pounds, lifetime. She has lost another 1 pounds in 2 months. She has achieved 94% excess weight loss. Body mass index is reduced from 47.9 down to 26.0. She reports persistent epigastric abdominal pain after eating certain type of foods. PAST MEDICAL HISTORY: 1. Morbid obesity, BMI 47.9, initial 2. Dyslipidemia. 3. Gastroesophageal reflux disease. 4. Obstructive sleep apnea. 5. Panniculitis. PAST SURGICAL HISTORY: 1. History of hernia ventral hernia. 2. History of breast surgery. 3. Status post Sin-en-Y gastric bypass. 4. Cholecystetomy. 5. Lysis of adhesions. MEDICATIONS: 1. Multivitamins. 2. Omeprazole. 3. Nystatin powder 4. Vitamin A 5. Calcium ALLERGIES: Denies. SOCIAL HISTORY: Denies active tobacco use. FAMILY HISTORY: Pertinent for diabetes including morbid obesity. Denies any inflammatory bowel disease. REVIEW OF SYSTEMS: CONSTITUTIONAL: At her height of 5 feet 9-1/4 inches, her ideal body weight is 168 pounds. Her highest weight was 326 pounds. Today she comes in weighing 177 pounds. She has lost 149 pounds, lifetime. She has lost another 1 pounds in 2 months. She has achieved 94% excess weight loss. Body mass index is reduced from 47.9 down to 26.0. GASTROINTESTINAL: No dumping syndrome. No change in bowel habits. MUSCULOSKELETAL: Moderate resolution of the bilateral hip and knee pain including lower back pain. RESPIRATORY: Resolved obstructive sleep apnea. No pneumonia. 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 ENDOCRINE: Glucose intolerance, resolved. No reports of hypothyroidism. HEENT: Denies any vision or hearing loss. CARDIOVASCULAR: Denies any heart attack or chest pain. NEURO: Denies any seizure disorders. Denies any numbness. PSYCH: Denies any depression or suicidal ideation. HEMATOLOGIC: Denies any easy bruising or bleeding. PHYSICAL EXAM: VITAL SIGNS: 5 feet 9-1/4, 177 pounds. Body mass index 26.0 Vital Signs Temp 98.6 F 07/05/17 14:08 Pulse 58 L 07/05/17 14:08 Resp 16 07/05/17 14:08 BP 121/84 07/05/17 14:08 Pulse Ox Intake & Output 07/04/17 07/05/17 07/05/17 18:59 06:59 18:59 Weight 80.331 kg ABDOMEN: Pannus extends over pubis more than 5 inches. Weight of pannus over 10 pounds with severe elastosis. Soft, nondistended. GENERAL: Well-developed, pleasant female in no acute distress. MUSCULOSKELETAL: No clubbing, cyanosis, or edema. HEENT: No sclerae icterus. Extraocular movements intact. Moist buccal mucosa. NECK: Supple without lymphadenopathy. CHEST: Nonlabored respirations were equal bilateral excursions. CARDIOVASCULAR: Regular rate and rhythm. NEURO: No focal or lateralizing signs. Cranial nerves II through XII grossly within normal limits. PSYCH: Appropriate affect. Alert and oriented to person place and time. SKIN: Well perfused. Good skin turgor. ASSESSMENT: 1. Morbid obesity due to excess calories, now resolved. 2. Body mass index reduced from 47.9 down to 26.0 3. Status post Sin-en-Y gastric bypass. 4. Panniculitis 5. Status post massive weight loss of 149 pounds. 6. Panniculus adiposis. 7. Epigastric pain. 8. Severe iron deficiency. 9. Left sided chest pain. PLAN: 1. We discussed cause of abdominal pain and it is worse with eating gluten foods. 2. Recommend gluten free diet for 2 weeks. 3. Also esophageal spams and dysmotility may be of a concern. Recommend manometry. 4. Decrease exposure to calcium that can exacerbate symptoms. 5. Recommend iron supplement for severe iron deficiency. 6. She reports occasional left sided chest pain and recommend seeing supervisor electronics assembly. 7. Nystatin powder recommended. Past Medical History Past Medical History: Blood Disorder, GERD/Reflux, Hyperlipidemia, Sleep Apnea/ CPAP/BIPAP Additional Past Medical History / Comment(s): NO TX FOR SLEEP Apnea, GERD, HYPERLIPIDEMIA RESOLVED SINCE BARIATRIC SURGERY. HAS HAD EPISODES OF UPPER ABD PAIN, NONE RECENT. ANEMIA. History of Any Multi-Drug Resistant Organisms: None Reported Past Surgical History: Bariatric Surgery, Breast Surgery, Cholecystectomy, Hernia Repair Additional Past Surgical History / Comment(s): Hiatal Hernia Repair. SIN-N-Y Gastric Bypass 05/2015. FELICITY Breast Lumpectomy. Past Anesthesia/Blood Transfusion Reactions: No Reported Reaction, Motion Sickness Past Psychological History: No Psychological Hx Reported Additional Psychological History / Comment(s): . Smoking Status: Never smoker Past Alcohol Use History: None Reported Additional Past Alcohol Use History / Comment(s): . Past Drug Use History: None Reported - Past Family History Mother Family Medical History: No Reported History Additional Family Medical History / Comment(s): Mother is healthy Father Family Medical History: No Reported History Additional Family Medical History / Comment(s): Father is healthy. Medications and Allergies Home Medications Medication Instructions Recorded Confirmed Type Multivitamins, Thera [Multivitamin] 2 tab PO DAILY 06/25/15 07/05/17 History Calcium Citrate 1 tab PO DAILY 02/22/16 07/05/17 History Nystatin 100,000 Unit/gm Powd 1 applic TOPICAL TID PRN 05/12/16 07/05/17 History [Mycostatin Powder] Vitamin A 5,000 unit PO DAILY 08/17/16 07/05/17 History Omeprazole 40 mg PO DAILY #90 capsule. 01/11/17 07/05/17 Rx Nystatin 100,000 Unit/gm Powd 1 applic TOPICAL BID #60 powder 07/05/17 Rx [Mycostatin Powder] Allergies Allergy/AdvReac Type Severity Reaction Status Date / Time No Known Allergies Allergy Verified 07/05/17 14:08 Surgical - Exam Vital Signs Temp Pulse Resp BP 98.6 F 58 L 16 121/84 07/05/17 14:08 07/05/17 14:08 07/05/17 14:08 07/05/17 14:08
== END | disposition home or self-care (01) ==
LOC: BARWHC3 13:32
PROVIDERS: ATTEND Surgery Plastic and Reconstructive Surgery
DX: Z09 Encounter for follow-up examination after completed treatment for conditions other than malignant neoplasm (principal); K21.9 Gastro-esophageal reflux disease without esophagitis; R10.13 Epigastric pain; M79.3 Panniculitis, unspecified; R63.4 Abnormal weight loss; E66.8 Other obesity; E61.1 Iron deficiency; R07.9 Chest pain, unspecified; E78.5 Hyperlipidemia, unspecified; G47.33 Obstructive sleep apnea (adult) (pediatric); Z90.49 Acquired absence of other specified parts of digestive tract; Z79.899 Other long term (current) drug therapy; Z68.26 Body mass index [BMI] 26.0-26.9, adult; Z98.84 Bariatric surgery status; Z99.89 Dependence on other enabling machines and devices
CPT/HCPCS: 99211

== ENCOUNTER → 2017-08-16 | Outpatient (CLI) | payer OTHER ==
[2017-08-16 16:50] VITALS: BP 139/84; PULSE 47; RESP 20; TEMP 98.5; BMI 25.8
--- NOTE | 2017-08-16 17:18 | P.PN ---
Subjective Progress Note Date: 08/16/17 HPI: Patient comes in with panniculitis. She reports reflux and she completed a manometry ABDOMEN: Epigastric PLAN: 1. Omeprazole to be prescribed. 2. Has low heart rate and sees process equipment operator for clearance. 3. Panniculectomy expectations 4. Manometry shows hiatal hernia. Objective - Vital Signs Vital signs: Vital Signs Temp 98.5 F 08/16/17 16:45 Pulse 47 L 08/16/17 16:45 Resp 20 08/16/17 16:45 BP 139/84 08/16/17 16:45 Pulse Ox Intake & Output 08/15/17 08/16/17 08/16/17 18:59 06:59 18:59 Weight 79.968 kg
== END | disposition home or self-care (01) ==
LOC: BARWHC3 15:12
PROVIDERS: ATTEND Surgery Plastic and Reconstructive Surgery
DX: M79.3 Panniculitis, unspecified (principal); K21.9 Gastro-esophageal reflux disease without esophagitis
CPT/HCPCS: 99211

== ENCOUNTER → 2017-08-22 | Outpatient (CLI) | payer OTHER ==
[2017-08-22 08:13] LABS: Basophils % (A) 0 %; Eosinophils # (A) 0.1 k/uL (0-0.7); Eosinophils % (A) 1 %; HCT 40.8 % (34.0-46.0); Lymphocytes % (A) 51 %; MCH 31.3 pg (25.0-35.0); MCHC 34.3 g/dL (31.0-37.0); MCV 91.2 fL (80.0-100.0); Mean Platelet Volume 7.3; Monocytes # (A) 0.2 k/uL (0-1.0); Monocytes % (A) 5 %; Neutrophils # (A) 1.6 k/uL (1.3-7.7); Neutrophils % (A) 41 %; Platelet Count 181 k/uL (150-450); RBC 4.47 m/uL (3.80-5.40); RDW 14.6 % (11.5-15.5); WBC 3.9 k/uL (3.8-10.6)
[2017-08-22 08:27] LABS: ALT 45 U/L (9-52); AST 28 U/L (14-36); Albumin 4.3 g/dL (3.5-5.0); Alkaline Phosphatase 55 U/L (38-126); Anion Gap 10 mmol/L; Blood Urea Nitrogen 16 mg/dL (7-17); Calcium 9.6 mg/dL (8.4-10.2); Carbon Dioxide 25 mmol/L (22-30); Chloride 106 mmol/L (98-107); Glucose 101 mg/dL (74-99); Potassium 4.5 mmol/L (3.5-5.1); Sodium 141 mmol/L (137-145); Total Bilirubin 0.5 mg/dL (0.2-1.3); Total Protein 6.5 g/dL (6.3-8.2)
[2017-08-22 08:33] LABS: Prothrombin Time 10.1 sec (9.0-12.0)
== END | disposition home or self-care (01) ==
LOC: LABPAT 07:33
PROVIDERS: ATTEND Surgery Plastic and Reconstructive Surgery
DX: Z01.812 Encounter for preprocedural laboratory examination (principal); E07.9 Disorder of thyroid, unspecified
CPT/HCPCS: 80053; 85025; 85610

== ENCOUNTER → 2017-08-22 | Outpatient (CLI) | payer OTHER | END | disposition home or self-care (01) | LOC: LABWHC1 07:57 | PROVIDERS: ATTEND Internal Medicine Interventional Cardiology | DX: E07.9 Disorder of thyroid, unspecified (principal) | CPT/HCPCS: 36415; 84443 ==

== ENCOUNTER 2017-09-04 14:39 | Day surgery (SDC) | payer OTHER ==
[2017-08-23 11:39] VITALS: BMI 24.7
--- NOTE | 2017-09-03 17:17 | P.GSHP ---
History of Present Illness H&P Date: 09/04/17 DATE OF SERVICE: 09/04/2017 CHIEF COMPLAINT: Follow-up gastric bypass HISTORY OF PRESENT ILLNESS: Maile Barboza is a 42-year-old female status post Sin -en-Y gastric bypass on 05/18/2015. She is 2+ years out. At her height of 5 feet 9-1/4 inches, her ideal body weight is 168 pounds. Her highest weight was 326 pounds. Today she comes in weighing 172 pounds. She has lost 154 pounds, lifetime. She has lost another 5 pounds in 1.5 months. She has achieved 98 % excess weight loss. Body mass index is reduced from 47.9 down to 25.2. She comes in with very panniculitis and is here for a panniculectomy. PAST MEDICAL HISTORY: 1. Morbid obesity, BMI 47.9, initial 2. Dyslipidemia. 3. Gastroesophageal reflux disease. 4. Obstructive sleep apnea. 5. Panniculitis. PAST SURGICAL HISTORY: 1. History of hernia ventral hernia. 2. History of breast surgery. 3. Status post Sin-en-Y gastric bypass. 4. Cholecystetomy. 5. Lysis of adhesions. MEDICATIONS: 1. Multivitamins. 2. Omeprazole. 3. Nystatin powder 4. Vitamin A 5. Calcium ALLERGIES: Denies. SOCIAL HISTORY: Denies active tobacco use. FAMILY HISTORY: Pertinent for diabetes including morbid obesity. Denies any inflammatory bowel disease. REVIEW OF SYSTEMS: CONSTITUTIONAL: At her height of 5 feet 9-1/4 inches, her ideal body weight is 168 pounds. Her highest weight was 326 pounds. Today she comes in weighing 172 pounds. She has lost 154 pounds, lifetime. She has lost another 5 pounds in 1.5 months. She has achieved 98% excess weight loss. Body mass index is reduced from 47.9 down to 25.2. GASTROINTESTINAL: No dumping syndrome. No change in bowel habits. MUSCULOSKELETAL: Moderate resolution of the bilateral hip and knee pain including lower back pain. RESPIRATORY: Resolved obstructive sleep apnea. No pneumonia. 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 ENDOCRINE: Glucose intolerance, resolved. No reports of hypothyroidism. HEENT: Denies any vision or hearing loss. CARDIOVASCULAR: Denies any heart attack or chest pain. NEURO: Denies any seizure disorders. Denies any numbness. PSYCH: Denies any depression or suicidal ideation. HEMATOLOGIC: Denies any easy bruising or bleeding. PHYSICAL EXAM: VITAL SIGNS: 5 feet 9-1/4, 172 pounds. Body mass index 25.2 ABDOMEN: Pannus extends over pubis more than 5 inches. Weight of pannus over 10 pounds with severe elastosis. Soft, nondistended. GENERAL: Well-developed, pleasant female in no acute distress. MUSCULOSKELETAL: No clubbing, cyanosis, or edema. HEENT: No sclerae icterus. Extraocular movements intact. Moist buccal mucosa. NECK: Supple without lymphadenopathy. CHEST: Nonlabored respirations were equal bilateral excursions. CARDIOVASCULAR: Regular rate and rhythm. NEURO: No focal or lateralizing signs. Cranial nerves II through XII grossly within normal limits. PSYCH: Appropriate affect. Alert and oriented to person place and time. SKIN: Well perfused. Good skin turgor. ASSESSMENT: 1. Morbid obesity due to excess calories, now resolved. 2. Body mass index reduced from 47.9 down to 25.2 3. Status post Sin-en-Y gastric bypass. 4. Panniculitis 5. Status post massive weight loss of 154 pounds. 6. Panniculus adiposis. 7. Epigastric pain. 8. Severe iron deficiency. 9. Left sided chest pain. PLAN: 1. Recommend proceeding with panniculectomy. 2. DVT prophylaxis. 3. Antibiotic prophylaxis. 4. Will need iron supplementation for iron deficiency anemia. Past Medical History Past Medical History: GERD/Reflux, Hyperlipidemia, Sleep Apnea/CPAP/BIPAP Additional Past Medical History / Comment(s): states "heart rate runs between 40 -47",NO TX FOR SLEEP Apnea, GERD, HYPERLIPIDEMIA RESOLVED SINCE BARIATRIC SURGERY. ANEMIA. History of Any Multi-Drug Resistant Organisms: None Reported Past Surgical History: Bariatric Surgery, Breast Surgery, Cholecystectomy, Hernia Repair Additional Past Surgical History / Comment(s): Hiatal Hernia Repair. SIN-N-Y Gastric Bypass 05/2015. FELICITY Breast Lumpectomy-benign Past Anesthesia/Blood Transfusion Reactions: No Reported Reaction, Motion Sickness Additional Past Anesthesia/Blood Transfusion Reaction / Comment(s): no problems with prior blood transfusion Smoking Status: Never smoker - Past Family History Mother Family Medical History: No Reported History Additional Family Medical History / Comment(s): Mother is healthy Father Family Medical History: No Reported History Additional Family Medical History / Comment(s): Father is healthy. Medications and Allergies Home Medications Medication Instructions Recorded Confirmed Type Calcium Citrate 2 tab PO DAILY 02/22/16 08/23/17 History Vitamin A 10,000 unit PO DAILY 08/17/16 08/23/17 History Ascorbic Acid [Vitamin C] 500 mg PO DAILY 08/23/17 08/23/17 History Ferrous Sulfate [Feosol] 45 mg PO MOWEFR 08/23/17 08/23/17 History Multivit with Calcium,Iron,Min 1 each PO DAILY 08/23/17 08/23/17 History [Women's Multivitamin] Omeprazole 40 mg PO QAM 08/23/17 08/23/17 History Allergies Allergy/AdvReac Type Severity Reaction Status Date / Time No Known Allergies Allergy Verified 08/23/17 11:26
[~2017-09-04 14:39] MED LIST changes: +ACETAMINOPHEN IV (For NPO) 1,000 MG in EMPTY BAG 1 BAG IVPB ONE; -ACETAMINOPHEN TAB 500 MG TAB PO ONE; -HYDROmorphone 1 MG/ML 1 ML SYRINGE IVP PRN; -LACTATED RINGERS 1,000 ML IV SCH; -LIDOCAINE 1% 20 ML VIAL (10MG/ML) FOR IV START INTRADERMA PRN; +MIDAZOLAM 2 MG/2 ML VIAL IV PRN; -ONDANSETRON 4 MG/2 ML VIAL IVP ONE; -Pre Op ABX Message 1 EACH MISC MISCELLANE ONE; -ceFAZolin 2 GM in SODIUM CHLORIDE 0.9% 100 ML IVPB ONE; +ceFAZolin IN SWFI 2 GM/20 ML SYRINGE IVP ONE; +fentaNYL (PF) 50 MCG/ML 2 ML AMP IV PRN
[2017-09-04] MEDS: LACTATED RINGERS 1,000 ML IV SCH (15:17)
[2017-09-04] MEDS ORDERED: LIDOCAINE 1% 20 ML VIAL (10MG/ML) FOR IV START INTRADERMA ONE (15:17)
[2017-09-04] MEDS: ONDANSETRON 4 MG/2 ML VIAL IVP ONE ×2 (15:19→21:00)
[2017-09-04] MEDS ORDERED: ACETAMINOPHEN IV (For NPO) 1,000 MG/100 ML VIAL IVPB ONE (16:56)
[2017-09-04] MEDS ORDERED: SUCCINYLCHOLINE CHLORIDE 100 MG/5 ML SYR IV ONE (17:56)
[2017-09-04] MEDS ORDERED: GLYCOPYRROLATE 0.2 MG/ML 2 ML VIAL ONE (17:56)
[2017-09-04] MEDS ORDERED: PROPOFOL 10 MG/ML 20 ML VIAL IV ONE (17:56)
[2017-09-04] MEDS ORDERED: MIDAZOLAM 2 MG/2 ML VIAL ONE (17:56)
[2017-09-04] MEDS ORDERED: LIDOCAINE 1% INJ 10MG/ML (20 ML MDV) ONE (17:56)
[2017-09-04] MEDS ORDERED: fentaNYL (PF) 50 MCG/ML 2 ML AMP ONE (17:56)
[2017-09-04] MEDS ORDERED: HYDROmorphone (PF) 1 MG/ML ONE (17:56)
[2017-09-04] MEDS ORDERED: LACTATED RINGERS 1,000 ML IV ONE ×2 (18:31→20:27)
[2017-09-04] MEDS ORDERED: METOCLOPRAMIDE 5 MG/ML 2 ML VIAL IVP PRN (20:27)
[2017-09-04] MEDS ORDERED: ONDANSETRON 4 MG/2 ML VIAL IVP PRN (20:27)
[2017-09-04] MEDS ORDERED: HYDROmorphone 0.5 MG/0.5 ML SYRINGE IVP PRN ×2 (20:27)
[2017-09-04] MEDS ORDERED: NALOXONE 0.4 MG/ML 1 ML VIAL IV PRN (20:27)
--- NOTE | 2017-09-04 20:27 | P.PCN ---
Date of Procedure: 09/04/17 Preoperative Diagnosis: Adipose panniculus is, status post massive weight loss over 200 pounds, central adiposity, panniculitis Postoperative Diagnosis: Same Procedure(s) Performed: Panniculectomy 4.6 pounds, primary ventral hernia repair 10 x 28 cm with facial lubrication Anesthesia: MARYBEL Surgeon: Shirley Chavis Estimated Blood Loss (ml): 200 Pathology: other (Panniculitis, 4.6 pounds) Condition: stable Disposition: floor
[2017-09-04 21:01] VITALS: RESP 16
[2017-09-04] MEDS: HYDROcodone/APAP 5-325MG 1 EACH TAB PO PRN (23:19)
[2017-09-04] MEDS: ceFAZolin IN SWFI 2 GM/20 ML SYRINGE IVP SCH (23:20)
[2017-09-04] MEDS: DOCUSATE 100 MG CAP PO SCH (23:20)
[2017-09-05] MEDS: HYDROcodone/APAP 5-325MG 1 EACH TAB PO PRN ×3 (03:47→11:46)
[2017-09-05] MEDS: LACTATED RINGERS 1,000 ML IV SCH (05:40)
[2017-09-05] MEDS ORDERED: PANTOPRAZOLE 40 MG TABLET PO SCH (07:30)
[2017-09-05 07:40] LABS: Basophils % (A) 0 %; Eosinophils % (A) 0 %; HCT 38.1 % (34.0-46.0); HGB 13.4 gm/dL (11.4-16.0); Lymphocytes # (A) 1.2 k/uL (1.0-4.8); Lymphocytes % (A) 11 %; MCH 31.9 pg (25.0-35.0); MCHC 35.2 g/dL (31.0-37.0); MCV 90.7 fL (80.0-100.0); Mean Platelet Volume 7.1; Monocytes # (A) 0.4 k/uL (0-1.0); Monocytes % (A) 3 %; Neutrophils # (A) 9.1 k/uL (1.3-7.7); Neutrophils % (A) 85 %; Platelet Count 267 k/uL (150-450); RBC 4.21 m/uL (3.80-5.40); RDW 13.6 % (11.5-15.5); WBC 10.8 k/uL (3.8-10.6)
[2017-09-05 08:43] VITALS: BP 114/85; PULSE 57; TEMP 98.3
[2017-09-05] MEDS: ceFAZolin IN SWFI 2 GM/20 ML SYRINGE IVP SCH (08:48)
[2017-09-05] MEDS: DOCUSATE 100 MG CAP PO SCH (08:49)
[2017-09-05] MEDS ORDERED: SODIUM FERRIC GLUCONAT-SUCROSE 125 MG in SODIUM CHLORIDE 0.9% 100 ML IVPB SCH (09:00)
[2017-09-05] MEDS ORDERED: ENOXAPARIN 40 MG/0.4 ML SYRINGE SQ SCH (09:00)
--- NOTE | 2017-09-05 09:32 | P.DS ---
Providers Expected date of discharge: 09/05/17 Attending physician: Shirley Chavis Primary care physician: Landry Fairhven [facility] Course: 42-year-old female presented on the elective basis to undergo panniculectomy for panniculitis. Patient is status post elli-en-y gastric bypass 2 years out done 05/18/2015. Patient lost 154 pounds. BMI was reduced from 47-24. Panniculectomy 4.6 pounds, primary ventral hernia repair 10 x 28 cm with facial lubrication is done on September 04. On the day of discharge abdominal binder was in place. Patient was instructed to not remove the abdominal binder. Abdominal binder would be removed in a follow-up visit with Dr. Chavis Pain medication was effective for pain control patient was tolerating bariatric clear diet. Up ambulating to the bathroom and back no difficulty. Heart rate was in the 70s. Sats on room air 97%. Blood pressure 114/85. Temp is 98.3. The white count was 10.8. Hemoglobin 13.4. 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 Jennifer Yang nurse practitioner acting as scribe for signing physician. Plan - Discharge Summary Discharge Rx Participant: No New Discharge Prescriptions: New HYDROcodone/APAP 5-325MG [[place] 5-325] 1 tab PO Q4HR PRN #30 tab PRN Reason: Pain Continue Calcium Citrate 2 tab PO DAILY Ascorbic Acid [Vitamin C] 500 mg PO DAILY Omeprazole 40 mg PO QAM Multivit with Calcium,Iron,Min [Women's Multivitamin] 1 each PO DAILY Ferrous Sulfate [Iron (65 MG Elemental)] 45 mg PO MOWEFR Discontinued Vitamin A 10,000 unit PO DAILY Discharge Medication List Calcium Citrate 2 tab PO DAILY 02/22/16 [History] Ascorbic Acid [Vitamin C] 500 mg PO DAILY 08/23/17 [History] Ferrous Sulfate [Iron (65 MG Elemental)] 45 mg PO MOWEFR 08/23/17 [History] Multivit with Calcium,Iron,Min [Women's Multivitamin] 1 each PO DAILY 08/23/17 [ History] Omeprazole 40 mg PO QAM 08/23/17 [History] HYDROcodone/APAP 5-325MG [[place] 5-325] 1 tab PO Q4HR PRN #30 tab 09/05/17 [Rx] Follow up Appointment(s)/Referral(s): [facility] [NON-STAFF] - 09/08/17 10:00 am Patient Instructions/Handouts: Panniculectomy (DC) Activity/Diet/Wound Care/Special Instructions: NO lifting over 4 pounds in 4 weeks. No shower. No bathtub soaks. Record BLANK drain output daily and strip drains to prevent clogging. Sleep with head of bed up at 30 to 45 degrees. Walk with hips flexed to prevent tear of your incision. Dressings to be removed by your doctor in the office. EAT 75 G PROTEIN DAILY FOR OPTIMAL RECOVERY. Discharge Disposition: HOME SELF-CARE
--- NOTE | 2017-09-06 10:31 | PN ---
PROGRESS NOTE DATE OF SERVICE: 09/05/2017 CHIEF COMPLAINT: Status post panniculectomy. HISTORY OF PRESENT ILLNESS: This lady is doing well. She is not having is a great deal pain. She has had no nausea, vomiting, chills, fever, etc. PHYSICAL EXAM: Chest is clear. Cardiac exam is normal with vitals normal. Bowel sounds are present. Extremities are normal. IMPRESSION: 1. Status post panniculectomy. 2. Gastroesophageal reflux disease. PLAN: Probably home today. MMODL / IJN: [id number] /
--- NOTE | 2017-09-06 10:37 | CONS ---
CONSULTATION CHIEF COMPLAINT: Pendulous panniculus. HISTORY OF PRESENT ILLNESS: This lady is brought in for elective panniculectomy. REVIEW OF SYSTEMS: She has had no problems with headaches, chest pain, shortness of breath, nausea, vomiting, diarrhea, urinary complaints, fever, chills, etc. She does have a history of GERD. She has otherwise been healthy. Past medical history, family history, personal and social histories demonstrate that she only takes Prilosec. She used to smoke but does not any longer. PHYSICAL EXAM: Blood pressure is 128/84, pulse 70, respirations 16. She is afebrile. In general, she appeared to be well developed, well nourished, in no acute distress. Skin color is normal. Skin is warm, dry. Lymph nodes are not enlarged. Head, ears, eyes, nose, mouth, and throat are normal. Neck veins are not distended. Thyroid is not enlarged. Chest is clear. Cardiac exam is normal. Bowel sounds are present. Extremities are normal. IMPRESSION: Status post panniculectomy. PLAN: No change in program and she is doing well. MMODL / IJN: [id number] /
--- NOTE | 2017-09-07 14:18 | P.OP ---
Date of Procedure: 09/04/17 Description of Procedure: SURGEON: THIAGO MEYERS MD PREOPERATIVE DIAGNOSES: 1. Morbid obesity due to excess calories, now resolved. 2. Body mass index reduced from 47.9 down to 25.2 3. Status post Sin-en-Y gastric bypass. 4. Panniculitis 5. Status post massive weight loss of 154 pounds. 6. Panniculus adiposis. 7. Epigastric pain. 8. Iron deficiency. 9. Central adiposity POSTOPERATIVE DIAGNOSES: 1. Morbid obesity due to excess calories, now resolved. 2. Body mass index reduced from 47.9 down to 25.2 3. Status post Sin-en-Y gastric bypass. 4. Panniculitis 5. Status post massive weight loss of 154 pounds. 6. Panniculus adiposis. 7. Epigastric pain. 8. Iron deficiency. 9. Central adiposity 10. Ventral hernia, 10 x 28 cm, initial and reducible, unrelated to previous bariatric procedure OPERATION: 1. Panniculectomy, 4.6 pounds. 2. Primary repair of ventral hernia 10 x 28 cm with fascial imbrication. ANESTHESIA: General ESTIMATED BLOOD LOSS: 200 mL SPECIMENS REMOVED: Pannus 4.6 pounds. COMPLICATIONS: None. CONDITION: Stable. DRAINS: Two #19 Ba drains below abdominal flap extending through the pubis. OPERATIVE FINDINGS: 1. Pannus weighing 4.6 pounds, excised. 2. Abdominal ventral hernia of 10 x 28 cm along the midline repaired primarily using fascial imbrication. INDICATIONS: Maile Barboza is a 42-year-old female status post Sin-en-Y gastric bypass on 05/18/2015. She is 2+ years out. At her height of 5 feet 9-1/4 inches , her ideal body weight is 168 pounds. Her highest weight was 326 pounds. Today she comes in weighing 172 pounds. She has lost 154 pounds, lifetime. She has achieved 98 % excess weight loss. Body mass index is reduced from 47.9 down to 25.2. She presents for a panniculectomy. Despite medical therapy with prescription powders such as Nystatin over 1 year, she has developed severe medical refractory panniculitis. Benefits and risks of the procedure including bleeding, infection, cosmetic deformity, abdominal seromas, placement of drains , risk of flap failure were described at length. Informed consent was obtained. DESCRIPTION: In the preanesthesia care unit the patient was marked with an indelible marker. She had also been given heparin subcutaneously. The patient was brought into the operating room and laid in supine position. After general induction, a Jean catheter was placed. The abdomen was then prepped and draped in standard sterile fashion using ChloraPrep. The skin was prepped as far laterally to the back, inferiorly to the upper thighs and superiorly to above the bilateral breasts. A timeout protocol was confirmed with the surgical team regarding patient's name , procedure to be performed, including preoperative medications. She had received Ancef 2 grams IV antibiotics. Once the time-out protocol was confirmed with the surgical team, the patient was re-marked with indelible marker whereby the midline of the xiphoid to the mons pubis was marked. The anterior/superior iliac spine along the bilateral hips was also marked. At 8 cm above the pubis commissure a transverse incision was made for the inferior portion of the flap. Using a #10 blade, the incision was taken from the midline laterally to above the anterior/superior iliac spine, initially on the left side of the patient and then on the right side of the patient. Electro-Bovie cautery was used to control for hemostasis. The dissection was taken down to the level of the fascia. Landmarks used were the xiphoid process as well as the bilateral costal margins for the superior margin. Care was taken to avoid any creation of dog ears during the dissection. Once hemostasis was checked, a large ventral hernia fascial defect of 10 x 28 cm was identified unrelated to her bariatric procedure. During this dissection , the umbilicus was truncated at its fascial insertion. Starting from the xiphoid process, fascial imbrication was performed using #2 Ethibond. Multiple facial imbrications at least 4 layers were performed. The ventral hernia defect was completely repaired and closed. Hemostasis was once again checked with electro-Bovie cautery and all defects were addressed. Attention was now brought to closure of the flap. Using stainless steel skin diann, the midline was once again marked of the upper flap as well as the pubic commissure. The patient was placed in a flexed position of approximately 30 degrees at the hips. The pannus was extended inferiorly to the feet. The upper flap was created once the excess skin was excised. Again care was taken to avoid any dog ears along the lateral aspect of the incisions. Once excised, the pannus was weighed at 4.6 pounds. The upper and lower flaps were reapproximated at the midline and then laterally to the skin with skin diann. Once reapproximated, the skin was closed in layers using 0 Vicryl for the superficial fascial system followed by running 3- 0 Monocryl for the deep dermis in a running subcuticular fashion. Prior to skin closure, two round #19 Ba drains were placed underneath the flap and brought out just inferior to the incision along the pubis. Drain stitch using 2-0 nylon was placed. Once the incision was closed, bulb suction was attached. Hemostasis was checked. At the end of the procedure, the needle, sponge and instrument count was verified correct. The skin was cleansed with hydrogen peroxide. Liquid glue tape including adhesive was placed along the length of the incision. Optifoam long silver dressing was also placed over the incision. Small optifoam dressing was placed over the BLANK sites. The patient was then transferred to a hospital bed in a beach chair position. An abdominal binder was placed and marked. The patient was taken to the postanesthesia care unit in stable condition, awake and extubated. Total time for procedure from skin to skin was 106 minutes. The intraoperative findings were discussed with her family who were pleased with the level of care.
== END 2017-09-05 12:36 | disposition home or self-care (01) ==
LOC: OR 14:39 → 3SUR 16:21 → OR 09-05 12:36
PROVIDERS: ATTEND Surgery Plastic and Reconstructive Surgery
DX: M79.3 Panniculitis, unspecified (principal); E65 Localized adiposity; K43.9 Ventral hernia without obstruction or gangrene; Z98.84 Bariatric surgery status; Z68.24 Body mass index [BMI] 24.0-24.9, adult; D50.9 Iron deficiency anemia, unspecified; R07.9 Chest pain, unspecified; K21.9 Gastro-esophageal reflux disease without esophagitis; G47.33 Obstructive sleep apnea (adult) (pediatric); Z99.89 Dependence on other enabling machines and devices; Z79.899 Other long term (current) drug therapy; Z88.5 Allergy status to narcotic agent; Z91.048 Other nonmedicinal substance allergy status; Z87.891 Personal history of nicotine dependence
CPT/HCPCS: 81025; 85025; 49560; J2250; J1644; J1100; J2765; J2405; J2001; J1650; J3010; J2916; J1170; J0131; J0330; J2704; J0690 ×2

== ENCOUNTER → 2017-09-08 | Outpatient (CLI) | payer OTHER ==
[2017-09-08 12:27] VITALS: BP 134/93; PULSE 50; TEMP 98.7; BMI 23.0
--- NOTE | 2017-09-08 15:11 | P.PN ---
Subjective Progress Note Date: 09/08/17 HPI: Patient is postoperative day 4 status post panniculectomy 5 pounds excised. Pain is controlled. BLANK has been serosanguineous. No reports of fevers or chills. ABDOMEN: Superficial dressing discontinue. Incisions well approximated. No signs of infection. Dressings were changed along BLANK sites. PLAN: 1. Follow-up in 5 days for changes dressings. 2. Wear abdominal binder on at all times. Objective - Vital Signs Vital signs: Vital Signs Temp 98.7 F 09/08/17 12:24 Pulse 50 L 09/08/17 12:24 Resp BP 134/93 09/08/17 12:24 Pulse Ox Intake & Output 09/07/17 09/08/17 09/08/17 18:59 06:59 18:59 Weight 71.214 kg
== END ==
LOC: BARWHC3 09:43
PROVIDERS: ATTEND Surgery Plastic and Reconstructive Surgery
DX: Z48.817 Encounter for surgical aftercare following surgery on the skin and subcutaneous tissue (principal); Z98.890 Other specified postprocedural states
CPT/HCPCS: 99212

== ENCOUNTER → 2017-09-11 | Outpatient (CLI) | payer OTHER ==
--- NOTE | 2017-09-11 10:28 | P.PN ---
Subjective Progress Note Date: 09/11/17 DATE OF SERVICE: 09/11/2017 CHIEF COMPLAINT: s/p panniculectomy HISTORY OF PRESENT ILLNESS: Maile Barboza is a 42-year-old female status post Sin -en-Y gastric bypass on 05/18/2015. At her height of 5 feet 9-1/4 inches, her ideal body weight is 168 pounds. Her highest weight was 326 pounds. Today she comes in weighing 156 pounds. She has lost 170 pounds, lifetime. She has achieved 107 % excess weight loss. Body mass index is reduced from 47.9 down to 22.9. Her weight is unchanged in 4 days. She is status post panniculectomy 2017 with 5 pounds excised. She is doing well. PHYSICAL EXAM: VITAL SIGNS: 5 feet 9-1/4, 156 pounds. Body mass index 22.9. Vital Signs Temp 98.2 F 09/11/17 10:53 Pulse 50 L 09/11/17 10:53 Resp 14 09/11/17 10:43 BP 121/88 09/11/17 10:53 Pulse Ox ABDOMEN: Dressing changed. BLANK is serosanguinous. No signs of infection. Incision well approximated. GENERAL: Well-developed, pleasant female in no acute distress. MUSCULOSKELETAL: No clubbing, cyanosis, or edema. HEENT: No sclerae icterus. Extraocular movements intact. Moist buccal mucosa. NECK: Supple without lymphadenopathy. CHEST: Nonlabored respirations were equal bilateral excursions. CARDIOVASCULAR: Regular rate and rhythm. NEURO: No focal or lateralizing signs. Cranial nerves II through XII grossly within normal limits. PSYCH: Appropriate affect. Alert and oriented to person place and time. ASSESSMENT: 1. Morbid obesity due to excess calories, now resolved. 2. Body mass index reduced from 47.9 down to 22.9 3. Status post Sin-en-Y gastric bypass. 4. s/p panniculectomy 5. Status post massive weight loss of 170 pounds. PLAN: 1. Continue BLANK 2. Follow up in 5 days for dressing changes
[2017-09-11 10:56] VITALS: BP 121/88; PULSE 50; TEMP 98.2; BMI 22.9
[2017-09-11 11:03] VITALS: RESP 14
== END | disposition home or self-care (01) ==
LOC: BARWHC3 09:52
PROVIDERS: ATTEND Surgery Plastic and Reconstructive Surgery
DX: Z48.817 Encounter for surgical aftercare following surgery on the skin and subcutaneous tissue (principal); Z98.890 Other specified postprocedural states; Z98.84 Bariatric surgery status
CPT/HCPCS: 99212

== ENCOUNTER → 2017-09-15 | Outpatient (CLI) | payer OTHER ==
--- NOTE | 2017-09-15 10:45 | P.PN ---
Subjective Progress Note Date: 09/15/17 DATE OF SERVICE: 09/15/2017 CHIEF COMPLAINT: s/p panniculectomy HISTORY OF PRESENT ILLNESS: Maile Barboza is a 42-year-old female status post Sin -en-Y gastric bypass on 05/18/2015. At her height of 5 feet 9-1/4 inches, her ideal body weight is 168 pounds. Her highest weight was 326 pounds. Today she comes in weighing 158 pounds from 156 pounds, 1 week ago. She has lost 168 pounds, lifetime. She has achieved 107 % excess weight loss. Body mass index is reduced from 47.9 down to 23.1. She has gained 2 pounds in 4 days. She is status post panniculectomy 09/04/2017. No fevers or chills. No infection. Pain is controlled. PHYSICAL EXAM: VITAL SIGNS: 5 feet 9-1/4, 158 pounds. Body mass index 23.1 Vital Signs Temp 98.2 F 09/15/17 11:26 Pulse 66 09/15/17 11:26 Resp BP 129/82 09/15/17 11:26 Pulse Ox ABDOMEN: BLANK are still fairly red. Drainage less than 15 mL. No signs of infection. GENERAL: Well-developed, pleasant female in no acute distress. MUSCULOSKELETAL: No clubbing, cyanosis, or edema. HEENT: No sclerae icterus. Extraocular movements intact. Moist buccal mucosa. NECK: Supple without lymphadenopathy. CHEST: Nonlabored respirations were equal bilateral excursions. CARDIOVASCULAR: Regular rate and rhythm. NEURO: No focal or lateralizing signs. Cranial nerves II through XII grossly within normal limits. PSYCH: Appropriate affect. Alert and oriented to person place and time. ASSESSMENT: 1. Morbid obesity due to excess calories, now resolved. 2. Body mass index reduced from 47.9 down to 23.1 3. Status post Sin-en-Y gastric bypass. 4. s/p panniculectomy 5. Status post massive weight loss of 168 pounds. PLAN: 1. Follow-up in 5 days for removal of all dressings and JPs.
[2017-09-15 11:30] VITALS: BP 129/82; PULSE 66; TEMP 98.2; BMI 23.1
== END | disposition home or self-care (01) ==
LOC: BARWHC3 09:45
PROVIDERS: ATTEND Surgery Plastic and Reconstructive Surgery
DX: Z48.817 Encounter for surgical aftercare following surgery on the skin and subcutaneous tissue (principal); Z09 Encounter for follow-up examination after completed treatment for conditions other than malignant neoplasm; Z98.84 Bariatric surgery status
CPT/HCPCS: 99212

== ENCOUNTER → 2017-09-18 | Outpatient (CLI) | payer OTHER ==
[2017-09-18 14:37] VITALS: BP 124/80; PULSE 55; TEMP 98; BMI 23.7
--- NOTE | 2017-09-18 17:32 | P.PN ---
Subjective Progress Note Date: 09/18/17 Pain is controlled. All BLANK drains discontinued. Dressings discontinued. We' ll wear abdominal binder at all times for 2 weeks. Follow-up in 2 weeks. Objective - Vital Signs Vital signs: Vital Signs Temp 98.0 F 09/18/17 14:34 Pulse 55 L 09/18/17 14:34 Resp BP 124/80 09/18/17 14:34 Pulse Ox Intake & Output 09/17/17 09/18/17 09/18/17 18:59 06:59 18:59 Weight 72.938 kg
== END | disposition home or self-care (01) ==
LOC: BARWHC3 09:52
PROVIDERS: ATTEND Surgery Plastic and Reconstructive Surgery
DX: Z48.817 Encounter for surgical aftercare following surgery on the skin and subcutaneous tissue (principal)
CPT/HCPCS: 99212

== ENCOUNTER → 2017-10-04 | Outpatient (CLI) | payer OTHER ==
[2017-10-04 16:17] VITALS: BP 117/75; PULSE 57; RESP 14; TEMP 98.7; BMI 24.0
--- NOTE | 2017-10-04 16:44 | P.PN ---
Subjective Progress Note Date: 10/04/17 DATE OF SERVICE: 10/04/2017 CHIEF COMPLAINT: s/p panniculectomy HISTORY OF PRESENT ILLNESS: Maile Barboza is a 42-year-old female status post panniculectomy 09/04/2017. She is 1 month out. She is doing fine. She had a nausea spell recently that caused her to wretch. She has gained 7 pounds and is eating. At her height of 5 feet 9-1/4 inches, her ideal body weight is 168 pounds. Her highest weight was 326 pounds. Today she comes in weighing 164 pounds from 160 pounds, 2 weeks ago. She has lost 162 pounds, lifetime. She has achieved 103 % excess weight loss. Body mass index is reduced from 47.9 down to 24.0. PHYSICAL EXAM: VITAL SIGNS: 5 feet 9-1/4, 164 pounds. Body mass index 24.0 Vital Signs Temp 98.7 F 10/04/17 16:02 Pulse 57 L 10/04/17 16:02 Resp 10/04/17 16:02 BP 117/75 10/04/17 16:02 Pulse Ox ABDOMEN: Has mild fluid. No infections. GENERAL: Well-developed, pleasant female in no acute distress. CARDIOVASCULAR: Regular rate and rhythm. NEURO: No focal or lateralizing signs. Cranial nerves II through XII grossly within normal limits. MUSCULOSKELETAL: No clubbing, cyanosis, or edema. HEENT: No sclerae icterus. Extraocular movements intact. Moist buccal mucosa. NECK: Supple without lymphadenopathy. CHEST: Nonlabored respirations were equal bilateral excursions. PSYCH: Appropriate affect. Alert and oriented to person place and time. SKIN: Well perfused. Good skin turgor. ASSESSMENT: 1. Morbid obesity due to excess calories, now resolved. 2. Body mass index reduced from 47.9 down to 24.0 3. Status post Sin-en-Y gastric bypass. 4. s/p panniculectomy PLAN: 1. Recommend wearing binder and weight lifting restrictions for 8 weeks. 2. Follow up November 2017. Objective - Vital Signs Vital signs: Vital Signs Temp 98.7 F 10/04/17 16:02 Pulse 57 L 10/04/17 16:02 Resp 14 10/04/17 16:02 BP 117/75 10/04/17 16:02 Pulse Ox Intake & Output 10/03/17 10/04/17 10/04/17 18:59 06:59 18:59 Weight 74.389 kg
== END | disposition home or self-care (01) ==
LOC: BARWHC3 14:55
PROVIDERS: ATTEND Surgery Plastic and Reconstructive Surgery
DX: Z09 Encounter for follow-up examination after completed treatment for conditions other than malignant neoplasm (principal); R11.0 Nausea; Z98.84 Bariatric surgery status; Z98.890 Other specified postprocedural states
CPT/HCPCS: 99212

== ENCOUNTER → 2017-11-08 | Outpatient (CLI) | payer OTHER ==
[2017-11-08 13:32] VITALS: BP 114/74; PULSE 50; RESP 15; TEMP 98.3; BMI 25.4
--- NOTE | 2017-11-08 14:14 | P.PN ---
Subjective Progress Note Date: 11/08/17 DATE OF SERVICE: 11/08/2017 CHIEF COMPLAINT: s/p panniculectomy HISTORY OF PRESENT ILLNESS: Maile Barboza is a 42-year-old female status post panniculectomy 09/04/2017. She is 2 months out. She is doing well. She has issues with dry skin. She has gained 20 pounds in 2 months. She has gained 10 pounds in 1 month. At her height of 5 feet 9-1/4 inches, her ideal body weight is 168 pounds. Her highest weight was 326 pounds. Today she comes in weighing 174 pounds from 164 pounds, 1 familia ago. She has lost 152 pounds, lifetime. She has achieved 96% excess weight loss. Body mass index is reduced from 47.9 down to 25.5. PHYSICAL EXAM: VITAL SIGNS: 5 feet 9-1/4, 174 pounds. Body mass index 25.5 Vital Signs Temp 98.3 F 11/08/17 13:24 Pulse 50 L 11/08/17 13:24 Resp 15 11/08/17 13:24 BP 114/74 11/08/17 13:24 Pulse Ox ABDOMEN: No fluid collection or seroma. No infection. GENERAL: Well-developed, pleasant female in no acute distress. CARDIOVASCULAR: Regular rate and rhythm. NEURO: No focal or lateralizing signs. Cranial nerves II through XII grossly within normal limits. MUSCULOSKELETAL: No clubbing, cyanosis, or edema. HEENT: No sclerae icterus. Extraocular movements intact. Moist buccal mucosa. NECK: Supple without lymphadenopathy. CHEST: Nonlabored respirations were equal bilateral excursions. PSYCH: Appropriate affect. Alert and oriented to person place and time. SKIN: Well perfused. Good skin turgor. ASSESSMENT: 1. Morbid obesity due to excess calories, now resolved. 2. Body mass index reduced from 47.9 down to 25.5 3. Status post Sin-en-Y gastric bypass. 4. s/p panniculectomy PLAN: 1. May discontinue abdominal binder. 2. Follow up yearly. Objective - Vital Signs Vital signs: Vital Signs Temp 98.3 F 11/08/17 13:24 Pulse 50 L 11/08/17 13:24 Resp 15 11/08/17 13:24 BP 114/74 11/08/17 13:24 Pulse Ox Intake & Output 11/07/17 11/08/17 11/08/17 18:59 06:59 18:59 Weight 78.925 kg
== END | disposition home or self-care (01) ==
LOC: BARWHC3 13:22
PROVIDERS: ATTEND Surgery Plastic and Reconstructive Surgery
DX: Z48.817 Encounter for surgical aftercare following surgery on the skin and subcutaneous tissue (principal); Z98.84 Bariatric surgery status; Z98.890 Other specified postprocedural states
CPT/HCPCS: 99212

== ENCOUNTER 2018-02-01 09:41 | Emergency (ER) | payer OTHER ==
[2018-02-01] MEDS ORDERED: SODIUM CHLORIDE 0.9% 1,000 ML IV STA (10:07)
--- NOTE | 2018-02-01 11:11 | ED ---
Abdominal Pain HPI - General Chief Complaint: Abdominal Pain Stated Complaint: abdominal pain Time Seen by Provider: 02/01/18 10:06 Source: patient, RN notes reviewed Mode of arrival: ambulatory Limitations: no limitations - History of Present Illness Initial Comments: This a 42-year-old female presents emergency Department chief complaint of right sided abdominal pain, right flank pain. Patient states pain is been intermittent but one is present she states the pain is intense. She states that last that she cannot get,: Nothing that she did make the pain feel better or worse. She has no history kidney stones. She denies any current dysuria, hematuria, diarrhea, constipation, nausea vomiting. Patient states that she called her gastric bypass surgeon Dr. Jeffries who told her follow-up with her PCP. She's been unable to get into her PCP went to [facility] and referred to emergency department. Patient states that she's also had a prior cholecystectomy, flaquito silva. Patient had no complications since her surgery. - Related Data Home Medications Medication Instructions Recorded Confirmed Calcium Citrate 2 tab PO DAILY 02/22/16 02/01/18 Ferrous Sulfate [Iron (65 MG 45 mg PO MOWEFR 08/23/17 02/01/18 Elemental)] Multivit with Calcium,Iron,Min 1 each PO DAILY 08/23/17 02/01/18 [Women's Multivitamin] Omeprazole 40 mg PO QAM 08/23/17 02/01/18 Vitamin A Acetate [Vitamin A] 10,000 unit SL DAILY 11/08/17 02/01/18 Allergies Allergy/AdvReac Type Severity Reaction Status Date / Time No Known Allergies Allergy Verified 02/01/18 10:03 Review of Systems ROS Statement: Those systems with pertinent positive or pertinent negative responses have been documented in the HPI. ROS Other: All systems not noted in ROS Statement are negative. Past Medical History Past Medical History: Blood Disorder, GERD/Reflux Additional Past Medical History / Comment(s): NO TX FOR SLEEP Apnea, GERD, HYPERLIPIDEMIA RESOLVED SINCE BARIATRIC SURGERY. HAS HAD EPISODES OF UPPER ABD PAIN, NONE RECENT. ANEMIA. History of Any Multi-Drug Resistant Organisms: None Reported Past Surgical History: Bariatric Surgery, Breast Surgery, Cholecystectomy, Hernia Repair Additional Past Surgical History / Comment(s): Hiatal Hernia Repair. CHELSIE-N-Y Gastric Bypass 05/2015. FELICITY Breast Lumpectomy. panniculectomy 09-04-17 Past Anesthesia/Blood Transfusion Reactions: No Reported Reaction, Motion Sickness Additional Past Anesthesia/Blood Transfusion Reaction / Comment(s): no problems with prior blood transfusion Past Psychological History: No Psychological Hx Reported Smoking Status: Never smoker Past Alcohol Use History: None Reported Past Drug Use History: None Reported - Past Family History Mother Family Medical History: No Reported History Additional Family Medical History / Comment(s): Mother is healthy Father Family Medical History: No Reported History Additional Family Medical History / Comment(s): Father is healthy. General Exam General appearance: alert, in no apparent distress Head exam: Present: atraumatic, normocephalic, normal inspection Neck exam: Present: normal inspection. Absent: tenderness, meningismus, lymphadenopathy Respiratory exam: Present: normal lung sounds bilaterally. Absent: respiratory distress, wheezes, rales, rhonchi, stridor Cardiovascular Exam: Present: regular rate, normal rhythm, normal heart sounds. Absent: systolic murmur, diastolic murmur, rubs, gallop, clicks GI/Abdominal exam: Present: soft, tenderness (Minimal right), normal bowel sounds. Absent: distended, guarding, rebound, rigid Back exam: Present: CVA tenderness (R). Absent: CVA tenderness (L) Skin exam: Present: warm, dry, intact, normal color. Absent: rash Course Vital Signs 02/01/18 09:47 Temperature 98.1 F Pulse Rate 52 L Respiratory 18 Rate Blood Pressure 134/87 O2 Sat by Pulse 100 Oximetry Medical Decision Making - Medical Decision Making 42-year-old female sent for right-sided abdominal pain, right flank pain. Patient did have noted hematuria outpatient was found to have a clear urinalysis at this time. Patient is symptom-free and no pain since last night. Patient may have passed a kidney stone. I did advise patient that if symptoms return or persist that she should follow-up with GI for possible colonoscopy. Otherwise labwork and CT unremarkable. - Lab Data Result diagrams: 02/01/18 11:00 02/01/18 11:00 Lab Results 02/01/18 02/01/18 02/01/18 Range/Units 11:00 11:00 11:40 WBC 3.7 L (3.8-10.6) k/uL RBC 4.33 (3.80-5.40) m/uL Hgb 14.0 (11.4-16.0) gm/dL Hct 40.0 (34.0-46.0) % MCV 92.4 (80.0-100.0) fL MCH 32.4 (25.0-35.0) pg MCHC 35.1 (31.0-37.0) g/dL RDW 12.1 (11.5-15.5) % Plt Count 215 (150-450) k/uL Neutrophils % 46 % Lymphocytes % 44 % Monocytes % 7 % Eosinophils % 1 % Basophils % 0 % Neutrophils # 1.7 (1.3-7.7) k/uL Lymphocytes # 1.6 (1.0-4.8) k/uL Monocytes # 0.2 (0-1.0) k/uL Eosinophils # 0.1 (0-0.7) k/uL Basophils # 0.0 (0-0.2) k/uL Sodium 140 (137-145) mmol/L Potassium 4.1 (3.5-5.1) mmol/L Chloride 108 H (98-107) mmol/L Carbon Dioxide 26 (22-30) mmol/L Anion Gap 6 mmol/L BUN 13 (7-17) mg/dL Creatinine 0.72 (0.52-1.04) mg/dL Est GFR (CKD-EPI)AfAm >90 (>60 ml/min/1.73 sqM) Est GFR (CKD-EPI)NonAf >90 (>60 ml/min/1.73 sqM) Glucose 87 (74-99) mg/dL Calcium 9.9 (8.4-10.2) mg/dL Total Bilirubin 0.7 (0.2-1.3) mg/dL AST 38 H (14-36) U/L ALT 29 (9-52) U/L Alkaline Phosphatase 82 (38-126) U/L Total Protein 7.6 (6.3-8.2) g/dL Albumin 4.4 (3.5-5.0) g/dL Amylase 93 (30-110) U/L Lipase 101 (23-300) U/L HCG, Qual Not Detected Urine Color Yellow Urine Appearance Clear (Clear) Urine pH 7.0 (5.0-8.0) Ur Specific [place] 1.011 (1.001-1.035) Urine Protein Negative (Negative) Urine Glucose (UA) Negative (Negative) Urine Ketones Negative (Negative) Urine Blood Negative (Negative) Urine Nitrite Negative (Negative) Urine Bilirubin Negative (Negative) Urine Urobilinogen <2.0 (<2.0) mg/dL Ur Leukocyte Esterase Negative (Negative) Disposition Clinical Impression: Abdominal pain Disposition: HOME SELF-CARE Condition: Stable Instructions: Abdominal Pain (ED) Additional Instructions: Please return to the Emergency Department if symptoms worsen or any other concerns. Is patient prescribed a controlled substance at d/c from ED?: No Referrals: Landry Musa MD [Primary Care Provider] - 1-2 days Time of Disposition: 12:37
[2018-02-01 11:32] LABS: HCG,Qualitative Serum Not Detected
[2018-02-01 11:34] LABS: Basophils % (A) 0 %; Eosinophils # (A) 0.1 k/uL (0-0.7); Eosinophils % (A) 1 %; Lymphocytes # (A) 1.6 k/uL (1.0-4.8); Lymphocytes % (A) 44 %; MCH 32.4 pg (25.0-35.0); MCHC 35.1 g/dL (31.0-37.0); MCV 92.4 fL (80.0-100.0); Mean Platelet Volume 7.2; Monocytes # (A) 0.2 k/uL (0-1.0); Monocytes % (A) 7 %; Neutrophils # (A) 1.7 k/uL (1.3-7.7); Neutrophils % (A) 46 %; Platelet Count 215 k/uL (150-450); RBC 4.33 m/uL (3.80-5.40); RDW 12.1 % (11.5-15.5); WBC 3.7 k/uL (3.8-10.6)
[2018-02-01 11:41] LABS: ALT 29 U/L (9-52); AST 38 U/L (14-36); Albumin 4.4 g/dL (3.5-5.0); Alkaline Phosphatase 82 U/L (38-126); Amylase 93 U/L (30-110); Anion Gap 6 mmol/L; Blood Urea Nitrogen 13 mg/dL (7-17); Calcium 9.9 mg/dL (8.4-10.2); Carbon Dioxide 26 mmol/L (22-30); Chloride 108 mmol/L (98-107); Glucose 87 mg/dL (74-99); Lipase 101 U/L (23-300); Potassium 4.1 mmol/L (3.5-5.1); Sodium 140 mmol/L (137-145); Total Bilirubin 0.7 mg/dL (0.2-1.3); Total Protein 7.6 g/dL (6.3-8.2)
[2018-02-01 12:15] LABS: Appearance,Urine Clear (Clear); Bilirubin,Urine Negative (Negative); Blood,Urine Negative (Negative); Color,Urine Yellow; Glucose,Urine (UA) Negative (Negative); Ketones,Urine Negative (Negative); Leukocyte Esterase,Urine Negative (Negative); Nitrite,Urine Negative (Negative); Protein,Urine Negative (Negative); Specific Gravity,Urine 1.011 (1.001-1.035); Urobilinogen,Urine <2.0 mg/dL (<2.0)
--- NOTE | 2018-02-01 12:31 | CT ---
EXAMINATION TYPE: CT abdomen pelvis wo con DATE OF EXAM: 02/01/2018 HISTORY: Right lower quadrant pain for [address] DLP: 472.9 mGycm. Automated Exposure Control for Dose Reduction was Utilized. TECHNIQUE: CT scan of the abdomen and pelvis is performed without oral or IV contrast. COMPARISON: NONE FINDINGS: Within the limitations of a non-contrast study, the following observations are made. LUNG BASES: No significant abnormality is appreciated. LIVER/GB: Cholecystectomy clips are present. Prominent right hepatic lobe, normal variant. PANCREAS: No significant abnormality is seen. SPLEEN: No significant abnormality is seen. ADRENALS: No significant abnormality is seen. KIDNEYS: No renal calculi are evident bilaterally. BOWEL: Evaluation bowel is suboptimal secondary to lack of enteric contrast and patient having little intra-abdominal fat. Surgical sutures are noted epigastric region from gastric bypass surgery. Appen justine difficult to visualize with certainty, no significant inflammatory changes seen at base of cecum in the right lower quadrant/upper pelvis. GENITAL ORGANS: Anteverted uterus is seen. Few scattered pelvic phleboliths are felt present. LYMPH NODES: No greater than 1cm abdominal or pelvic lymph nodes are appreciated. OSSEOUS STRUCTURES: There are bilateral pars defects L4 level with grade 1 anterolisthesis of L4 on L 5 and moderate disc space narrowing. OTHER: No significant additional abnormality is seen. IMPRESSION: No renal stones are seen bilaterally. No suspicious acute finding identified on noncontra st study.
[2018-02-01] MEDS ORDERED: ACET/COD 300 MG/30 MG STARTER PACK 6 TAB BTL PO STA (12:37)
[2018-02-01 13:17] VITALS: BP 130/87; PULSE 58; RESP 16; TEMP 98
== END 2018-02-01 13:16 | disposition home or self-care (01) ==
LOC: EC 09:41
DX: R10.31 Right lower quadrant pain (principal); K21.9 Gastro-esophageal reflux disease without esophagitis; G47.30 Sleep apnea, unspecified; D64.9 Anemia, unspecified; Z90.49 Acquired absence of other specified parts of digestive tract; Z98.84 Bariatric surgery status; Z79.899 Other long term (current) drug therapy
CPT/HCPCS: 36415; 74176; 80053; 81003; 82150; 83690; 84703; 85025; 96360; 99284

== ENCOUNTER → 2018-03-14 | Outpatient (CLI) | payer OTHER ==
[2018-03-14 16:53] VITALS: BP 118/75; PULSE 55; RESP 16; TEMP 98.7; BMI 25.8
--- NOTE | 2018-03-14 17:39 | P.PN ---
Subjective Progress Note Date: 03/14/18 HPI: She had severe abdominal pain and went to ER and had a CT of the abdomen. ABDOMEN: Mild tenderness at the right lower quadrant PLAN: 1. Labs reveiwed 2. Check Mag 3. Miralax Objective - Vital Signs Vital signs: Vital Signs Temp 98.7 F 03/14/18 16:49 Pulse 55 L 03/14/18 16:49 Resp 16 03/14/18 16:49 BP 118/75 03/14/18 16:49 Pulse Ox 98 03/14/18 16:49 Intake & Output 03/13/18 03/14/18 03/14/18 18:59 06:59 18:59 Weight 79.968 kg
== END | disposition home or self-care (01) ==
LOC: BARWHC3 15:29
PROVIDERS: ATTEND Surgery Plastic and Reconstructive Surgery
DX: R10.9 Unspecified abdominal pain (principal); R10.813 Right lower quadrant abdominal tenderness
CPT/HCPCS: 99211

== ENCOUNTER → 2018-03-15 | Outpatient (CLI) | payer OTHER ==
[2018-03-15 14:32] LABS: Basophils % (A) 0 %; Eosinophils % (A) 1 %; HCT 40.5 % (34.0-46.0); HGB 14.1 gm/dL (11.4-16.0); Lymphocytes # (A) 1.8 k/uL (1.0-4.8); Lymphocytes % (A) 45 %; MCH 32.3 pg (25.0-35.0); MCHC 34.8 g/dL (31.0-37.0); Mean Platelet Volume 7.1; Monocytes # (A) 0.3 k/uL (0-1.0); Monocytes % (A) 7 %; Neutrophils # (A) 1.8 k/uL (1.3-7.7); Neutrophils % (A) 45 %; Platelet Count 241 k/uL (150-450); RBC 4.36 m/uL (3.80-5.40); RDW 11.7 % (11.5-15.5)
[2018-03-15 15:10] LABS: Partial Thromboplastin Time 23.8 sec (22.0-30.0); Prothrombin Time 10.2 sec (9.0-12.0)
[2018-03-15 18:32] LABS: Parathyroid Hormone Intact 42.3 pg/mL (14.0-72.0)
[2018-03-15 18:34] LABS: Albumin 4.7 g/dL (3.80-4.90); Albumin/Globulin Ratio 2.61 (1.20-2.10); Anion Gap 6.9 mmol/L (4.00-12.00); Calcium 9.5 mg/dL (8.7-10.3); Carbon Dioxide 27.1 mmol/L (21.6-31.8); Globulin 1.8 g/dL (1.6-3.3); LDL Cholesterol,Calculated 80.8 mg/dL (0.0-131.0); Magnesium 1.8 mg/dL (1.5-2.4); Potassium 4.5 mmol/L (3.5-5.5); Total Bilirubin 0.7 mg/dL (0.3-1.2); Total Protein 6.5 g/dL (6.2-8.2); VLDL Calculation 16.2 mg/dL (5.00-40.00)
[2018-03-15 18:36] LABS: Iron Saturation 30.88 (12.00-45.00)
[2018-03-15 18:39] LABS: Vitamin D 25 Hydroxy 41.3 ng/mL (30.0-100.0)
[2018-03-15 18:41] LABS: T4, Free (Free Thyroxine) 1.2 ng/dL (0.80-1.80)
[2018-03-15 18:51] LABS: Folate, Serum 19.1 ng/mL
[2018-03-15 19:38] LABS: Hepatitis A Antibody IgM Non-Reactive (Non-Reactive); Hepatitis B Core IgM Non-Reactive (Non-Reactive)
[2018-03-15 20:59] LABS: Hemoglobin A1C 5.3 % (4.0-6.0)
[2018-03-16 13:49] LABS: Zinc, Serum 66 ug/dL (60-130)
== END ==
LOC: LABWHC1 13:21
PROVIDERS: ATTEND Surgery Plastic and Reconstructive Surgery
DX: E55.9 Vitamin D deficiency, unspecified (principal); R53.83 Other fatigue; Z13.220 Encounter for screening for lipoid disorders; E66.01 Morbid (severe) obesity due to excess calories; E21.1 Secondary hyperparathyroidism, not elsewhere classified; E89.1 Postprocedural hypoinsulinemia; D50.9 Iron deficiency anemia, unspecified; K90.9 Intestinal malabsorption, unspecified; E44.0 Moderate protein-calorie malnutrition; K74.1 Hepatic sclerosis; N19 Unspecified kidney failure; K50.90 Crohn's disease, unspecified, without complications
CPT/HCPCS: 36415; 80053; 80061; 80074; 82306; 82525; 82607; 82728; 82746; 83036; 83540; 83550; 83735; 83970; 84100; 84134; 84255; 84425; 84439; 84443; 84590; 84630; 85025; 85610; 85730

== ENCOUNTER → 2018-04-11 | Outpatient (CLI) | payer OTHER ==
--- NOTE | 2018-04-12 10:11 | MM ---
Reason for exam: screening (asymptomatic). Last mammogram was performed 1 year and 1 month ago. History: Benign excisional biopsy of both breasts, 1988. Took hormonal contraceptives for 8 years. Physical Findings: A clinical breast exam by your physician is recommended on an annual basis and results should be correlated with mammographic findings. MG Screening Mammo w CAD Bilateral CC and MLO view(s) were taken. Prior study comparison: February 25, 2017, bilateral MG screening mammo w CAD. September 17, 2014, bilateral MG screening mammo w CAD. The breast tissue is heterogeneously dense. This may lower the sensitivity of mammography. There is no discrete abnormality. No significant changes when compared with prior studies. ASSESSMENT: Negative, BI-RAD 1 RECOMMENDATION: Routine screening mammogram of both breasts in 1 year.
== END | disposition home or self-care (01) ==
LOC: RADMAMWWP 09:21
PROVIDERS: ATTEND Family Medicine
DX: Z12.31 Encounter for screening mammogram for malignant neoplasm of breast (principal)
CPT/HCPCS: 77067

== ENCOUNTER → 2018-11-29 | Outpatient (CLI) | payer OTHER ==
--- NOTE | 2018-11-29 07:59 | US ---
EXAMINATION TYPE: US thyroid st tissue head/neck DATE OF EXAM: 11/29/2018 COMPARISON: None CLINICAL HISTORY: R22.0 Cyst on L neck. Left lateral neck palpable x few months. No injury. TECHNIQUE/FINDINGS: Grayscale and color imaging were obtained of the palpable abnormality within the left neck. Area of concern scanned. Superficial oval appearing lesion visualized = 0.9 x 0.6 x 0.3 c m. This appears as a morphologically normal lymph node. Contralateral image taken. IMPRESSION: Palpable abnormality of the lymph node corresponds to a relatively normal nonenlarged serrano perficial cervical lymph node.
== END | disposition home or self-care (01) ==
LOC: RADUSWWP 07:24
PROVIDERS: ATTEND Surgery Plastic and Reconstructive Surgery
DX: R22.0 Localized swelling, mass and lump, head (principal)
CPT/HCPCS: 76536

== ENCOUNTER → 2020-06-09 | Outpatient (CLI) | payer OTHER ==
[2020-06-09 18:22] LABS: HCT 39.7 % (37.2-46.3); HGB 13.4 g/dL (12.0-15.0); MCHC 33.8 g/dL (32.0-37.0); MCV 94.7 fL (80.0-97.0); Mean Platelet Volume 10.5 fL (9.5-12.2); Platelet Count 241 X 10*3/uL (140-440); RBC 4.19 X 10*6/uL (4.10-5.20); RDW 11.4 % (11.5-14.5); WBC 4.02 X 10*3/uL (4.50-10.00)
[2020-06-09 22:18] LABS: Hemoglobin A1C 5.3 % (4.0-6.0)
[2020-06-09 23:36] LABS: INR 0.98 (0.90-1.11); Partial Thromboplastin Time 25.5 sec (23.5-31.0); Prothrombin Time 10.7 sec (9.9-11.9)
[2020-06-10 01:15] LABS: % Iron Saturation 25.29 (12.00-45.00); African American GFR (CKD) 89.5 (60.0-200.0); Albumin 4.9 g/dL (3.80-4.90); Albumin/Globulin Ratio 2.33 (1.60-3.17); BUN/Creat Ratio 12.22 Ratio (12.00-20.00); Calcium 9.9 mg/dL (8.7-10.3); Chol/HDL Ratio 2.77; Globulin 2.1 g/dL (1.6-3.3); LDL Cholesterol,Calculated 107.2 mg/dL (0.0-131.0); Non-African American GFR(CKD) 77.2 (60.0-200.0); Phosphorus 4.4 mg/dL (2.4-5.1); Potassium 4.3 mmol/L (3.5-5.5); Total Bilirubin 0.6 mg/dL (0.3-1.2); VLDL Calculation 18.8 mg/dL (5.00-40.00)
[2020-06-10 01:29] LABS: Ferritin 7.9 ng/mL (10.0-291.0)
[2020-06-10 12:24] LABS: Zinc, Serum 62 ug/dL (60-130)
[2020-06-10 14:22] LABS: Vitamin A 47 ug/dL (38-106)
[2020-06-12 00:07] LABS: Selenium 135 mcg/L (63-160)
[2020-06-12 07:45] LABS: Vit B1(Thiamine) 85 ug/L (38-122)
== END | disposition home or self-care (01) ==
LOC: LABWHC1 12:30
PROVIDERS: ATTEND Surgery Plastic and Reconstructive Surgery
DX: E55.9 Vitamin D deficiency, unspecified (principal); E66.01 Morbid (severe) obesity due to excess calories; E89.1 Postprocedural hypoinsulinemia; D50.9 Iron deficiency anemia, unspecified; N19 Unspecified kidney failure; K74.1 Hepatic sclerosis; K90.89 Other intestinal malabsorption; K50.90 Crohn's disease, unspecified, without complications
CPT/HCPCS: 36415; 80053; 80061; 82306; 82525; 82607; 82728; 82746; 83036; 83540; 83550; 83735; 83970; 84100; 84134; 84255; 84425; 84443; 84590; 84630; 85027; 85610; 85730

== ENCOUNTER → 2020-06-11 | Outpatient (CLI) | payer OTHER | END | disposition home or self-care (01) | LOC: LABWHC1 08:08 | PROVIDERS: ATTEND Surgery Plastic and Reconstructive Surgery | DX: D50.8 Other iron deficiency anemias (principal); K90.89 Other intestinal malabsorption; E55.9 Vitamin D deficiency, unspecified; K74.1 Hepatic sclerosis; N19 Unspecified kidney failure; K50.90 Crohn's disease, unspecified, without complications; E89.1 Postprocedural hypoinsulinemia; E66.01 Morbid (severe) obesity due to excess calories | CPT/HCPCS: 36415; 82607; 82746 ==

== ENCOUNTER → 2020-06-17 | Outpatient (CLI) | payer OTHER ==
[2020-06-17 13:20] VITALS: BP 137/88; PULSE 50; RESP 18; TEMP 99.4; BMI 26.4
--- NOTE | 2020-06-17 13:42 | P.PN ---
Subjective Progress Note Date: 06/17/20 DATE OF SERVICE: 06/17/2020 CHIEF COMPLAINT: Gastric bypass HISTORY OF PRESENT ILLNESS: Maile Barboza is a 42-year-old female status post gastric bypass, 05/18/2015. She is 5 years out. She is off omeprazole. She denies any further heart burn. She has maintained her weight loss. She completed her labs. She is taking Alive womens multivitamin. She is doing very well. At her height of 5 feet 9-1/4 inches, her ideal body weight is 168 pounds. Her highest weight was 326 pounds. Today she comes in weighing 180 pounds from 176 pounds, 2 years ago. She has gained 4 pounds in 2 years. She has lost 146 pounds, lifetime. She has achieved 93% excess weight loss lifetime. Body mass index is reduced from 47.9 down to 26.4 PAST MEDICAL HISTORY: 1. Morbid obesity, BMI 47.9, initial 2. Dyslipidemia. 3. Gastroesophageal reflux disease. 4. Obstructive sleep apnea. 5. Panniculitis. PAST SURGICAL HISTORY: 1. History of hernia ventral hernia. 2. History of breast surgery. 3. Status post Sin-en-Y gastric bypass. 4. Cholecystetomy. 5. Lysis of adhesions. 6. Panniculectomy MEDICATIONS: Home Medications Medication Instructions Recorded Confirmed Multivit with Calcium,Iron,Min 1 each PO DAILY 08/23/17 06/23/20 [Women's Multivitamin] ALLERGIES: Denies. SOCIAL HISTORY: Denies active tobacco use. FAMILY HISTORY: Pertinent for diabetes including morbid obesity. Denies any inflammatory bowel disease. REVIEW OF SYSTEMS: CONSTITUTIONAL: At her height of 5 feet 9-1/4 inches, her ideal body weight is 168 pounds. Her highest weight was 326 pounds. Body mass index is reduced from 47.9 GASTROINTESTINAL: No dumping syndrome. No change in bowel habits. MUSCULOSKELETAL: Moderate resolution of the bilateral hip and knee pain including lower back pain. RESPIRATORY: Resolved obstructive sleep apnea. No pneumonia. 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 ENDOCRINE: Glucose intolerance, resolved. No reports of hypothyroidism. HEENT: Denies any vision or hearing loss. CARDIOVASCULAR: Denies any heart attack or chest pain. NEURO: Denies any seizure disorders. Denies any numbness. PSYCH: Denies any depression or suicidal ideation. HEMATOLOGIC: Denies any easy bruising or bleeding. PHYSICAL EXAM: VITAL SIGNS: 5 feet 9.25, 180 pounds. Body mass index 26.4 Vital Signs Temp 99.4 F 06/17/20 13:16 Pulse 50 L 06/17/20 13:16 Resp 18 06/17/20 13:16 BP 137/88 06/17/20 13:16 Pulse Ox ABDOMEN: Soft, nondistended and nontender GENERAL: Well-developed, pleasant female in no acute distress. CARDIOVASCULAR: Regular rate and rhythm. NEURO: No focal or lateralizing signs. Cranial nerves II through XII grossly within normal limits. MUSCULOSKELETAL: No clubbing, cyanosis, or edema. HEENT: No sclerae icterus. Extraocular movements intact. Moist buccal mucosa. NECK: Supple without lymphadenopathy. CHEST: Nonlabored respirations were equal bilateral excursions. PSYCH: Appropriate affect. Alert and oriented to person place and time. SKIN: Well perfused. Good skin turgor. LABS: Reviewed. WBC low. AST elevated. HDL elevated. Vitamin B-12 is low. ASSESSMENT: 1. Morbid obesity due to excess calories, now resolved. 2. Body mass index reduced from 47.9 down to 26.4 3. Status post Sin-en-Y gastric bypass. 4. s/p panniculectomy 5. Constipation 6. Iron deficiency anemia 7. Vitamin B-12 deficiency 8. Leukopenia PLAN: 1. Recommend Vit B12 injection 2. Continue general multivitamin. Objective - Vital Signs Vital signs: Vital Signs Temp 99.4 F 06/17/20 13:16 Pulse 50 L 06/17/20 13:16 Resp 18 06/17/20 13:16 BP 137/88 06/17/20 13:16 Pulse Ox Intake & Output 06/16/20 06/17/20 06/17/20 18:59 06:59 18:59 Weight 81.647 kg
== END | disposition home or self-care (01) ==
LOC: BARWHC3 12:45
PROVIDERS: ATTEND Surgery Plastic and Reconstructive Surgery
DX: Z09 Encounter for follow-up examination after completed treatment for conditions other than malignant neoplasm (principal); E78.5 Hyperlipidemia, unspecified; E53.8 Deficiency of other specified B group vitamins; D50.9 Iron deficiency anemia, unspecified; K59.00 Constipation, unspecified; D72.819 Decreased white blood cell count, unspecified; Z98.84 Bariatric surgery status
CPT/HCPCS: 99211

== ENCOUNTER → 2020-06-23 | Outpatient (CLI) | payer OTHER ==
[~2020-06-23] MED LIST changes: -ACETAMINOPHEN IV (For NPO) 1,000 MG in EMPTY BAG 1 BAG IVPB ONE; +CYANOCOBALAMIN 1,000 MCG/ML 1 ML VIAL IM NR; -DEXAMETHASONE SOD PHOSPHATE 10 MG/ML 1 ML VIAL IV ONE; -HEPARIN SODIUM,PORCINE 5,000 UNIT/ML 1 ML VIAL SQ ONE; -MIDAZOLAM 2 MG/2 ML VIAL IV PRN; -SCOPOLAMINE 1.5MG/72HR PATCH TRANSDERM ONE; -ceFAZolin IN SWFI 2 GM/20 ML SYRINGE IVP ONE; -fentaNYL (PF) 50 MCG/ML 2 ML AMP IV PRN
[2020-06-23 08:14] VITALS: BP 126/85; PULSE 89; RESP 16; TEMP 98.3
== END ==
LOC: PROCWHC3 07:55
PROVIDERS: ATTEND Surgery Plastic and Reconstructive Surgery
DX: D51.9 Vitamin B12 deficiency anemia, unspecified (principal)
CPT/HCPCS: 96372; J3420

== ENCOUNTER 2021-05-06 15:25 | Emergency (ER) | payer OTHER ==
[2021-05-06 15:59] VITALS: BP 151/87; PULSE 73; RESP 16; TEMP 97.8
[2021-05-06] MEDS ORDERED: ACETAMINOPHEN TAB 500 MG TAB PO STA (17:59)
--- NOTE | 2021-05-07 00:12 | ED ---
General Adult HPI - General Chief complaint: Headache Stated complaint: Headache, sinus issues, sent for CT Time Seen by Provider: 05/06/21 16:52 Source: patient, RN notes reviewed, old records reviewed Mode of arrival: ambulatory Limitations: no limitations - History of Present Illness Initial comments: Patient is a 46-year-old female who presents emergency Department complaining of a headache, and recently diagnosed sinus infection by her PCP who instructed her to come to the emergency department for CT brain to rule out intracranial hemorrhage. Denies any neurological complaints. Describes the headache as sinus in nature, she states it is over her forehead. Denies any weakness, numbness. Denies any other complaints of any chest pain, shortness breath, fevers, chills, cough. Does endorse URI symptoms as well as sinus pressure. Was diagnosed with sinusitis and given amoxicillin, however was instructed to come here for CT brain. I evaluated the patient when she was placed in a room.Patient is on a blood thinners. Denies any trauma. He is not entirely sure why her PCP believes that she needs a CT brain, however she did state that it was something about possible bleeding on her brain. No history of this. This is not the worst headache of her life. - Related Data Home Medications Medication Instructions Recorded Confirmed Multivit with Calcium,Iron,Min 1 each PO DAILY 08/23/17 06/23/20 [Women's Multivitamin] Allergies Allergy/AdvReac Type Severity Reaction Status Date / Time No Known Allergies Allergy Verified 05/06/21 15:59 Review of Systems ROS Statement: Those systems with pertinent positive or pertinent negative responses have been documented in the HPI. ROS Other: All systems not noted in ROS Statement are negative. Past Medical History Past Medical History: Blood Disorder, GERD/Reflux Additional Past Medical History / Comment(s): NO TX FOR SLEEP Apnea, GERD, HYPERLIPIDEMIA RESOLVED SINCE BARIATRIC SURGERY. HAS HAD EPISODES OF UPPER ABD PAIN, NONE RECENT. ANEMIA. History of Any Multi-Drug Resistant Organisms: None Reported Past Surgical History: Bariatric Surgery, Breast Surgery, Cholecystectomy, Hernia Repair Additional Past Surgical History / Comment(s): Hiatal Hernia Repair. CHELSIE-N-Y Gastric Bypass 05/2015. FELIICTY Breast Lumpectomy. panniculectomy 09-04-17 Past Anesthesia/Blood Transfusion Reactions: No Reported Reaction, Motion Sickness Additional Past Anesthesia/Blood Transfusion Reaction / Comment(s): no problems with prior blood transfusion Past Psychological History: No Psychological Hx Reported Smoking Status: Never smoker Past Alcohol Use History: None Reported Past Drug Use History: None Reported - Past Family History Mother Family Medical History: No Reported History Additional Family Medical History / Comment(s): Mother is healthy Father Family Medical History: No Reported History Additional Family Medical History / Comment(s): Father is healthy. General Exam - General Exam Comments Initial Comments: General: Appears in no acute distress. HEAD: Normal with no signs of head trauma. EYES: PERRLA, EOMI, conjunctiva normal, no discharge. Pupils are 3 mm and equal bilaterally. ENT: Hearing grossly intact, normal oropharynx. Rhinorrhea present. Mild maxillary sinus tenderness bilaterally. RESPIRATORY: Clear breath sounds bilaterally. No wheezes, rales, or rhonchi. C/V: Regular rate and rhythm. S1 and S2 auscultated, no edema, peripheral pulses 2+ and intact throughout ABD: Abd is soft, nontender, nondistended EXT: Normal range of motion, no obvious deformity SKIN: No rashes or lesions observed on exposed skin. NEURO: Alert and oriented 4. Cranial nerves II through XII are intact. No focal sensory strength deficits. Patient can ambulate without difficulty. Cerebellar function is intact as evident by normal finger nose testing. NIH is 0. GCS is 15. Limitations: no limitations Course Vital Signs 05/06/21 15:56 Temperature 97.8 F Pulse Rate 73 Respiratory 16 Rate Blood Pressure 151/87 O2 Sat by Pulse 98 Oximetry Medical Decision Making - Medical Decision Making Based on the patient's presentation and physical exam, neurological exam is within normal limits. As the PCP did send her here for CT brain, we will obtain a CT brain. I did offer her analgesia medications for headache and she accepted Tylenol. I do not believe she requires any further laboratory studies or imaging at this time. Amoxicillin was already sent to her pharmacy to treat her sinus infection. Numerous critical patients presented to the emergency department after CT was ordered. Therefore this patient's CT imaging was delayed secondary to this. After a period of time, the patient did want to leave. She no longer wanted to wait. Patient left AMA. The patient was apprised of the potential risks of leaving the hospital AGAINST MEDICAL ADVICE, including serious complications, permanent disability, and . At the time of my interview the patient, the patient was alert, oriented, and capable. Patient signed AMA form, which was witnessed and signed by nursing staff, and placed in patient's chart. I urged the patient to return to the hospital as soon as possible to complete evaluation and treatment. Disposition Clinical Impression: Headache, Sinus infection Disposition: Left Against Medical Advice Referrals: Landry Musa MD [Primary Care Provider] - 1-2 days
== END 2021-05-06 18:40 | disposition left against medical advice (07) ==
LOC: EC 15:25
DX: R51.9 Headache, unspecified (principal); J32.9 Chronic sinusitis, unspecified
CPT/HCPCS: 99283

== ENCOUNTER → 2022-01-20 | Outpatient (CLI) | payer OTHER ==
--- NOTE | 2022-01-21 08:23 | MM ---
Reason for Exam: Screening (asymptomatic). Last mammogram was performed 3 year(s) and 9 month(s) ago. Patient History: Menarche at age 12. First Full-Term at age 29. Patient used Hormonal Contraceptives for 8 years. 1988, Bilateral Benign Excisional Biopsy. Risk Values: Cherrie 5 year model risk: 1.4%. NCI Lifetime model risk: 12.5%. Prior Study Comparison: 09/17/2014 Bilateral Screening Mammogram, [facility]. 02/25/2017 Bilateral Screening Mammogram, [facility]. 04/11/2018 Bilateral Screening Mammogram, [facility]. Tissue Density: The breast tissue is heterogeneously dense. This may lower the sensitivity of mammography. Findings: Analyzed By CAD. There is no suspicious group of microcalcifications or new suspicious mass in either breast. Overall Assessment: Negative, BI-RAD 1 Management: Screening Mammogram of both breasts in 1 year. A clinical breast exam by your physician is recommended on an annual basis and results should be correlated with mammographic findings. [facility] will attempt to contact patient to return for supplemental views and ultrasound if indicated. Electronically signed and approved by: Charles Sykes DO
== END | disposition home or self-care (01) ==
LOC: RADMAMWWP 16:20
PROVIDERS: ATTEND Family Medicine
DX: Z12.31 Encounter for screening mammogram for malignant neoplasm of breast (principal)
CPT/HCPCS: 77067

== ENCOUNTER → 2023-07-06 | Outpatient (CLI) | payer BC, OTHER ==
--- NOTE | 2023-07-06 18:20 | MM ---
Reason for Exam: Screening (asymptomatic). Last mammogram was performed 1 year(s) and 6 month(s) ago. Patient History: Menarche at age 12. First Full-Term at age 29. Patient used Hormonal Contraceptives for 8 years. 1988, Bilateral Benign Excisional Biopsy. Risk Values: Cherrie 5 year model risk: 1.3%. NCI Lifetime model risk: 12.1%. Prior Study Comparison: 02/25/2017 Bilateral Screening Mammogram, [facility]. 04/11/2018 Bilateral Screening Mammogram, [facility]. 01/20/2022 Bilateral MG screening mammo w CAD, [facility]. Tissue Density: There are scattered areas of fibroglandular density. Findings: Analyzed By CAD. The pattern is symmetrical. There is a new focal asymmetry within the inferior right mediolateral oblique view. Additional workup is recommended. This could be summation density. No suspicious groups of microcalcifications, spiculated or lobular masses, architectural distortion or other secondary signs of malignancy are mammographically apparent. Overall Assessment: Incomplete: need additional imaging evaluation, BI-RAD 0 Management: Diagnostic Mammogram of the right breast. A negative mammogram report should not preclude additional follow up of suspicious palpable abnormalities. Patient should continue monthly self breast exam. A clinical breast exam by your physician is recommended on an annual basis and results should be correlated with mammographic findings. Note on Cherrie scores and lifetime risk: 1. A Cherrie score greater than 3% is considered moderate risk. If this is the case, consider specialist referral to assess eligibility for a risk reducing agent. 2. If overall lifetime risk for the development of breast cancer is 20% or higher, the patient may qualify for future screening with alternating mammogram and breast MRI. Electronically signed and approved by: Efren Kimbrough D.O. Radiologis
== END | disposition home or self-care (01) ==
LOC: RADMAMWWP 07:29
PROVIDERS: ATTEND Family Medicine
DX: Z12.31 Encounter for screening mammogram for malignant neoplasm of breast (principal)
CPT/HCPCS: 77067

== ENCOUNTER → 2023-07-11 | Outpatient (CLI) | payer BC, OTHER ==
--- NOTE | 2023-07-11 08:29 | MM ---
Reason for Exam: Additional evaluation requested from abnormal screening. Last screening mammogram was performed less than 1 month ago. Patient History: Menarche at age 12. First Full-Term at age 29. Patient used Hormonal Contraceptives for 8 years. 1988, Bilateral Benign Excisional Biopsy. Risk Values: Cherrie 5 year model risk: 1.3%. NCI Lifetime model risk: 12.1%. Prior Study Comparison: 09/17/2014 Bilateral Screening Mammogram, [facility]. 04/11/2018 Bilateral Screening Mammogram, [facility]. 01/20/2022 Bilateral MG screening mammo w CAD, [facility]. 07/06/2023 Bilateral MG screening mammo w CAD, [facility]. Tissue Density: Right: There are scattered areas of fibroglandular density. Findings: Analyzed By CAD. Subtle 5 mm low-density area of nodular asymmetry appears to completely disperse on the spot 3-D MLO view. Questionable on the 3-D lateral view. Given the low density and circumscribed appearance on screening, six-month follow-up is recommended. Overall Assessment: Probably benign, BI-RAD 3 Management: Diagnostic Mammogram of the right breast in 6 months. . Results were given to the patient verbally at the time of exam. Patient should continue monthly self-breast exams. A clinical breast exam by your physician is recommended on an annual basis. This exam should not preclude additional follow-up of suspicious palpable abnormalities. Note on Cherrie scores and lifetime risk: 1. A Cherrie score greater than 3% is considered moderate risk. If this is the case, consider specialist referral to assess eligibility for a risk reducing agent. 2. If overall lifetime risk for the development of breast cancer is 20% or higher, the patient may qualify for future screening with alternating mammogram and breast MRI. Electronically signed and approved by: Gómez Maher M.D. Radiologist
== END | disposition home or self-care (01) ==
LOC: RADMAMWWP 07:51
PROVIDERS: ATTEND Family Medicine
DX: R92.321 Mammographic fibroglandular density, right breast (principal)
CPT/HCPCS: 77061; 77065

== ENCOUNTER → 2024-01-22 | Outpatient (CLI) | payer BC, OTHER ==
[2024-01-22 15:01] LABS: Basophils # (A) 0.02 X 10*3/uL (0.00-0.10); Basophils % (A) 0.4 %; Eosinophils # (A) 0.06 X 10*3/uL (0.04-0.35); Eosinophils % (A) 1.2 %; HGB 13.5 g/dL (12.0-15.0); Lymphocytes # (A) 1.51 X 10*3/uL (0.90-5.00); Lymphocytes % (A) 30.3 %; MCH 32.4 pg (27.0-32.0); MCHC 33.8 g/dL (32.0-37.0); MCV 95.9 FL (80.0-97.0); Mean Platelet Volume 10.4 FL (9.5-12.2); Monocytes # (A) 0.35 X 10*3/uL (0.20-1.00); NRBC Per 100 WBC 0 X 10*3/uL (0.00-0.01); Neutrophils # (A) 3.04 X 10*3/uL (1.80-7.70); Neutrophils % (A) 60.9 %; Platelet Count 258 X 10*3/uL (140-440); RBC 4.17 X 10*6/uL (4.10-5.20); RDW 11.9 % (11.5-14.5); WBC 4.99 X 10*3/uL (4.50-10.00)
[2024-01-22 15:43] LABS: ALT 28 U/L (8-44); AST 25 U/L (13-35); Albumin 4.3 g/dL (3.8-4.9); Albumin/Globulin Ratio 2.26 Ratio (1.60-3.17); Alkaline Phosphatase 69 U/L (41-126); BUN/Creat Ratio 16.86 Ratio (12.00-20.00); Blood Urea Nitrogen 11.8 mg/dL (9.0-27.0); Calcium 9.1 mg/dL (8.7-10.3); Carbon Dioxide 22.9 mmol/L (21.6-31.8); Chloride 107 mmol/L (96-109); Ferritin 10.6 ng/mL (10.0-291.0); Globulin 1.9 g/dL (1.6-3.3); Glucose 99 mg/dL (70-110); Iron 65 UG/DL (50-170); Potassium 4.2 mmol/L (3.5-5.5); Sodium 141 mmol/L (135-145); Total Bilirubin 0.4 mg/dL (0.3-1.2); Total Iron Binding Capacity 414 UG/DL (228-460); Total Protein 6.2 g/dL (6.2-8.2)
== END | disposition home or self-care (01) ==
LOC: LABWHC1 08:29
PROVIDERS: ATTEND Internal Medicine Gastroenterology
DX: R55 Syncope and collapse (principal)
CPT/HCPCS: 36415; 80053; 82607; 82728; 83540; 83550; 84439; 84443; 85025

== ENCOUNTER → 2024-05-23 | Outpatient (CLI) | payer BC, OTHER ==
[2024-05-23 10:13] LABS: HCT 43.2 % (37.2-46.3); HGB 14.7 g/dL (12.0-15.0); MCH 32.2 pg (27.0-32.0); MCV 94.5 FL (80.0-97.0); Mean Platelet Volume 10.4 FL (9.5-12.2); NRBC Per 100 WBC 0 X 10*3/uL (0.00-0.01); Platelet Count 259 X 10*3/uL (140-440); RBC 4.57 X 10*6/uL (4.10-5.20); RDW 11.5 % (11.5-14.5); WBC 6.05 X 10*3/uL (4.50-10.00)
[2024-05-23 11:14] LABS: ALT 24 U/L (8-44); AST 23 U/L (13-35); BUN/Creat Ratio 16.25 Ratio (12.00-20.00); Calcium 9.5 mg/dL (8.7-10.3); Carbon Dioxide 24.9 mmol/L (21.6-31.8); Chloride 106 mmol/L (96-109); Chol/HDL Ratio 2.84 Ratio; Glucose 99 mg/dL (70-110); LDL Cholesterol,Calculated 106.8 mg/dL (0.0-131.0); Potassium 4.4 mmol/L (3.5-5.5); Sodium 141 mmol/L (135-145)
== END | disposition home or self-care (01) ==
LOC: LABWHC1 06:59
PROVIDERS: ATTEND Internal Medicine Interventional Cardiology
DX: E78.2 Mixed hyperlipidemia (principal)
CPT/HCPCS: 36415; 80048; 80061; 84443; 84450; 84460; 85027

== ENCOUNTER → 2024-09-16 | Outpatient (CLI) | payer BC, OTHER ==
--- NOTE | 2024-09-16 07:43 | MM ---
Reason for Exam: Additional evaluation requested from prior study. Last mammogram was performed 1 year(s) and 2 month(s) ago. Patient History: Menarche at age 12. First Full-Term at age 29. Patient used Hormonal Contraceptives for 8 years. 1988, Bilateral Benign Excisional Biopsy. Risk Values: Cherrie 5 year model risk: 1.3%. NCI Lifetime model risk: 11.8%. Prior Study Comparison: 05/04/2010 Bilateral Screening Mammogram, [facility]. 05/06/2011 Bilateral Screening Mammogram, [facility]. 09/17/2014 Bilateral Screening Mammogram, [facility]. 02/25/2017 Bilateral Screening Mammogram, [facility]. 04/11/2018 Bilateral Screening Mammogram, [facility]. 01/20/2022 Bilateral MG screening mammo w CAD, [facility]. 07/06/2023 Bilateral MG screening mammo w CAD, [facility]. 07/11/2023 Right MG 3D work up w/cad RT, [facility]. Tissue Density: The breasts are heterogeneously dense, which may obscure small masses. Findings: Analyzed By CAD. No persistent nodule seen right breast. No new masses. No distortion or suspicious microcalcification. Overall Assessment: Benign, BI-RAD 2 Management: Screening Mammogram of both breasts in 1 year. . Results were given to the patient verbally at the time of exam. Patient should continue monthly self-breast exams. A clinical breast exam by your physician is recommended on an annual basis. This exam should not preclude additional follow-up of suspicious palpable abnormalities. Note on Cherrie scores and lifetime risk: 1. A Cherrie score greater than 3% is considered moderate risk. If this is the case, consider specialist referral to assess eligibility for a risk reducing agent. 2. If overall lifetime risk for the development of breast cancer is 20% or higher, the patient may qualify for future screening with alternating mammogram and breast MRI. [facility], , 09/16/2024 7:40 AM. Electronically signed and approved by: Mike Avila M.D. Radiologis
== END | disposition home or self-care (01) ==
LOC: RADMAMWWP 09-05 07:20
PROVIDERS: ATTEND Family Medicine
DX: R92.8 Other abnormal and inconclusive findings on diagnostic imaging of breast (principal); R92.332 Mammographic heterogeneous density, left breast; Z92.0 Personal history of contraception
CPT/HCPCS: 77062; 77066